=== PATIENT | male | born 1935 | race Caucasian/White ===

== ENCOUNTER 2016-10-23 08:09 | Day surgery (SDC) | payer MEDICARE, BC ==
[2016-10-23] VITALS (17 sets, daily range): BP systolic 126–161; BP diastolic 52–91; PULSE 50–98; RESP 16–25; Ht 167.6 cm; Wt 86.9 kg
[~2016-10-23] VITALS: Ht 167.6 cm; Wt 86.9 kg
[~2016-10-23 08:09] MED LIST: ASPI-664 PO; COLE1TAB5 PO; DUTA0.5C PO; FISH OIL PO; GLIM4TAB PO; LANTUS SC; LISI40TA9 PO; NIACIN PO; SITA1TAB7 PO; TAMS0.4C2 PO; TICA90TA PO
[2016-10-23] MEDS ORDERED: FINA5TAB4 PO (08:45)
[2016-10-23] MEDS ORDERED: LANT3I SC (08:46)
[2016-10-23] MEDS ORDERED: AMIT10TA6 PO (08:47)
[2016-10-23] MEDS ORDERED: SOD CHLORIDE 0.9% 1,000 ML IV SCH (09:00)
[2016-10-23] MEDS ORDERED: FENTAnyl 50 MCG/ML VIAL ONE (10:39)
[2016-10-23] MEDS ORDERED: LIDOCAINE 1% (MDV) 20 ML INJ ONE (10:39)
[2016-10-23] MEDS ORDERED: IODIXANOL LOCM 100 ML BTL ONE (10:39)
[2016-10-23] MEDS ORDERED: MIDAZOLAM 1 MG/ML 2 ML INJ ONE (10:39)
--- NOTE | 2016-10-23 11:41 | HPN ---
Date/Time of Note Date/Time of Note DATE: 10/23/16 TIME: 11:41 Interval H&P Admission Note Pt. seen H&P reviewed: No system changes RONALD CORDOBA MD Oct 23, 2016 11:41
--- NOTE | 2016-10-23 11:43 | SIPON ---
Date/Time of Note Date/Time of Note DATE: 10/23/16 TIME: 11:41 Operative Report Preoperative Diagnosis RLE rest pain, LLE disabling claudication Postoperative Diagnosis Same Operation/Procedure Performed AORTOILIAC ANGIOGRAM WITH BILATERAL LE RUNOFFS Surgeon: RONALD CORDOBA MD Estimated Blood Loss: minimal Transfusion Required: no Specimen: none Grafts/Implants: none Complications: no RONALD CORDOBA MD Oct 23, 2016 11:43
[2016-10-23] MEDS ORDERED: SOD CHLORIDE 0.45% 1,000 ML IV SCH (12:06)
--- NOTE | 2016-10-23 12:10 | PDOCDIS ---
Discharge Instructions DIAGNOSIS Discharge Diagnosis RLE rest pain, LLE disabling claudication CONDITION Patient Condition: Good HOME CARE INSTRUCTIONS: Special Diet: DIABETIC Diet ACTIVITY: Activity Restrictions: Slowly Increase Activity Avoid heavy lifting Do not Drive Do not operate Machinery Do not operate Power Tool Avoid Heavy Housework FOLLOW UP/APPOINTMENTS Follow-up Plan SURGERY ON MONDAY 10/30 RONALD CORDOBA MD Oct 23, 2016 12:10
[2016-10-23] MEDS ORDERED: ONDANSETRON 4 MG INJ IV PRN (12:30)
--- NOTE | 2016-10-23 13:19 | OPR ---
DATE OF OPERATION: 10/23/2016 SURGEON: Ambrosio Hubbard MD PREOPERATIVE DIAGNOSES: 1. Right lower extremity rest pain. 2. Left lower extremity disabling claudication. POSTOPERATIVE DIAGNOSES: 1. Right lower extremity rest pain. 2. Left lower extremity disabling claudication. OPERATIONS PERFORMED: 1. Ultrasound-guided access of the left common femoral artery 2. Aortoiliac angiogram. 3. Right lower extremity angiogram. 4. Left lower extremity angiogram. 5. Moderate sedation. ANESTHESIA: Local with sedation. ESTIMATED BLOOD LOSS: Minimal. COMPLICATIONS: None. HEPARIN: None. CONTRAST: As recorded. ACCESS: Left common femoral artery 4-Cymro sheath closure. Manual compression. SEDATION: Under physician's supervision, moderate sedation was administered intravenously under continuous monitoring by the interventional team and attending physician. Pulse oximeter, heart rates and blood pressures were continuously monitored by the interventional surgeon. Physician spent time was 45 minutes of [id number] sedation time with the patient. INDICATIONS: This is an 81-year-old gentleman who presented to us with a history of bilateral lower extremity disabling claudication, right being worse than the left, walking about 5-10 minutes where he would feel his symptoms come on. However, the patient reported that at night he does begin to wake up from the pain of his right lower extremity, specifically in his foot area. In light of these findings, the patient was discussed with obtaining of an angiogram and had been informed of alternatives, risks and benefits of angiogram, balloon angioplasty, stenting and atherectomy. The risks included, but were not limited to, bleeding, thrombosis, embolization, myocardial infarction, , stroke, device malfunction, infection, nephrotoxicity. The patient has agreed to proceed. OPERATIVE FINDINGS AT SURGERY: 1. Bilateral renal arteries are patent. Infrarenal aorta is patent and calcified. 2. Bilateral common iliac arteries, external iliac arteries, internal iliac arteries are tortuous and patent and calcified. 3. Right common femoral artery is patent. 4. Left profunda femoral artery has a proximal stenosis, otherwise patent. 5. Right superficial femoral artery with severe disease throughout and calcification with area of complete total occlusion. 6. Right above knee popliteal artery occlusion in the proximal aspect just below the adductor canal with reconstitution in its mid aspect with moderate severe disease. 7. Right at knee popliteal artery with moderate disease. 8. The right below-knee popliteal artery with moderate disease. 9. Right anterior tibial artery with moderate disease throughout. 10. Right tibioperoneal trunk is patent. 11. Right posterior tibial artery is patent with mild disease in its proximal aspect. 12. Right peroneal artery is occluded. 13. Right common plantar artery with moderate severe disease. 14. The right medial and plantar arteries are not well visualized. 15. The right dorsalis pedis artery is occluded. 16. Left common femoral artery is patent. 17. Left profunda femoral artery is patent. 18. Left superficial femoral artery with mild proximal disease, specifically in the area where there is a bi-profunda branch in the mid aspect. After that, there is severe disease across the mid to distal aspect of the superficial femoral artery. Left above knee popliteal artery with moderate severe disease. Left at knee popliteal artery with moderate disease. Left below knee popliteal artery with moderate to severe disease. 19. Left anterior tibial artery is occluded. Left tibioperoneal trunk with moderate disease. Left peroneal artery with severe disease throughout its course and area of occlusion. 20. Left posterior tibial artery with moderate to severe disease and occludes at the ankle area. 21. Left common plantar artery is not well visualized. 22. Left plantar, medial and lateral plantar arteries are not well visualized. 23. Line left dorsalis pedis artery is occluded. OPERATIVE PROCEDURE: The patient was brought into the angio suite and positioned in supine position on the fluoroscopic table. Sedation was then administered without any complications. The left groin was then shaved and prepped and draped in the usual standard sterile fashion. Time-out and appropriate site was marked and confirmed. Local anesthesia was then infiltrated in the region of the left common femoral artery. The artery was then cannulated with a micro access needle under ultrasound guidance and a guidewire was then advanced into the iliac artery under fluoroscopic guidance. The needle was then removed and a micro catheter was then placed. A DRESSBOOM wire was then passed into the infrarenal aorta under fluoroscopic guidance, followed by a short 4-Cymro sheath over the wire. The sheath was then appropriately flushed with heparinized saline solution. Omni Flush catheter was then passed into the suprarenal aorta and aortoiliac angiogram was then performed. Findings are noted above. At this point, Omni Flush catheter was then used to select the right common femoral artery in a third order selection, and a right lower extremity angiogram was then performed. At this point, it was determined not to intervene as the patient would require further contrast to perform an intervention for this severe infrainguinal disease of the right lower extremity. Therefore, the catheter was removed. At this point, we used the sheath of the left common femoral artery and performed a left lower extremity angiogram, as well. Findings are noted above. The patient tolerated procedure well and all catheters, sheaths and wires were removed. Manual compression was held in the left groin area. The patient tolerated the procedure well and was taken to the postanesthesia care unit in stable condition. PLAN: Will plan to perform a right lower extremity intervention to try to cross the complete total occlusion of the superficial femoral artery, possible angioplasty and stenting and atherectomy. Dictated By: Ambrosio Hubbard MD /[email or web address]/mani /Document#: [id number]
== END 2016-10-23 16:24 | disposition home or self-care (01) ==
LOC: SDS 08:09
PROVIDERS: ATTEND Student in an Organized Health Care Education/Training Program
DX: I73.9 Peripheral vascular disease, unspecified (principal)
CPT/HCPCS: 36200; 75630; 82962; C1887; C1894; J1644; J2250; J3010; Q9967

== ENCOUNTER 2016-10-30 09:03 | Day surgery (SDC) | payer MEDICARE, BC ==
[~2016-10-30] VITALS: Ht 167.6 cm; Wt 85.0 kg
[~2016-10-30 09:03] MED LIST changes: +AMIT10TA6 PO; -DUTA0.5C PO; +FINA5TAB4 PO; -FISH OIL PO; +LANT3I SC; -LANTUS SC; -NIACIN PO; -TICA90TA PO
[2016-10-30 09:55] VITALS: BP 125/60; PULSE 58; RESP 18
[2016-10-30 10:00] LABS: BASOPHILS % 0.2 % (0.0-2.0); EOSINOPHILS # 0.1 10^3/ul (0.0-0.5); EOSINOPHILS % 1.3 % (0.0-7.0); HEMATOCRIT 44.9 % (42.0-52.0); HEMOGLOBIN 15.5 g/dl (14.0-18.0); LYMPHOCYTES # 2.5 10^3/ul (0.8-2.9); LYMPHOCYTES % 26.7 % (15.0-51.0); MEAN CORPUSCULAR HEMOGLOBIN 30.5 pg (29.0-33.0); MEAN CORPUSCULAR HGB CONC 34.5 g/dl (32.0-37.0); MEAN CORPUSCULAR VOLUME 88.4 fl (82.0-101.0); MEAN PLATELET VOLUME 10.2 fl (7.4-10.4); MONOCYTE # 0.5 10^3/ul (0.3-0.9); MONOCYTES % 5.8 % (0.0-11.0); NEUTROPHIL # 6.1 10^3/ul (1.6-7.5); NEUTROPHILS % 65.6 % (39.0-77.0); PLATELET COUNT 160 10^3/UL (140-415); RED BLOOD COUNT 5.08 10^6/ul (4.70-6.10); RED CELL DISTRIBUTION WIDTH 12.9 % (11.5-14.5); WHITE BLOOD COUNT 9.3 10^3/ul (4.8-10.8)
--- NOTE | 2016-10-30 10:00 | HPN ---
Date/Time of Note Date/Time of Note DATE: 10/30/16 TIME: 09:59 Interval H&P Admission Note Pt. seen H&P reviewed: No system changes RONALD CORDOBA MD Oct 30, 2016 10:00
[2016-10-30 10:01] VITALS: Ht 167.6 cm; Wt 85.0 kg
[2016-10-30] MEDS ORDERED: CLOP75TA27 PO (10:04)
--- NOTE | 2016-10-30 10:04 | PDOCDIS ---
Discharge Instructions DIAGNOSIS Discharge Diagnosis BILATERAL LOWER EXTREMITY ATHEROSCLEROSIS, LLE REST PAIN, RLE DISABLING CLAUDICATION CONDITION Patient Condition: Good HOME CARE INSTRUCTIONS: Special Diet: DIABETIC ACTIVITY: Activity Restrictions: Rest between Activity Avoid heavy lifting Do not Drive Do not operate Machinery Do not operate Power Tool Avoid Heavy Housework Keep Limb Elevated Bathing Restrictions: Sponge Bath FOLLOW UP/APPOINTMENTS Follow-up Plan TWO WEEKS RONALD CORDOBA MD Oct 30, 2016 10:04
--- NOTE | 2016-10-30 10:06 | SIPON ---
Date/Time of Note Date/Time of Note DATE: 10/30/16 TIME: 10:05 Operative Report Free Text/Dictation Preoperative Diagnosis LLE REST PAIN Postoperative Diagnosis SAME Operation/Procedure Performed RLE FEMORAL ANGIOPLASTY Surgeon see signature line Anesthesia Type: moderate sedation Estimated Blood Loss: minimal Transfusion Required: no Specimen: none Grafts/Implants: none Complications: no RONALD CORDOBA MD Oct 30, 2016 10:06
[2016-10-30 10:10] LABS: INR 0.96; PROTIME 12.8 Sec (12.2-14.2)
[2016-10-30 10:11] LABS: PARTIAL THROMBOPLASTIN TIME 30.9 Sec (25.0-35.0)
[2016-10-30] MEDS ORDERED: MIDAZOLAM 1 MG/ML 2 ML INJ ONE (10:13)
[2016-10-30] MEDS ORDERED: HEPARIN 1000 UNITS/ML 10 ML INJ ONE (10:13)
[2016-10-30] MEDS ORDERED: FENTAnyl 50 MCG/ML VIAL ONE (10:13)
[2016-10-30] MEDS ORDERED: IODIXANOL LOCM 100 ML BTL ONE (10:13)
[2016-10-30 10:30] LABS: CALCIUM 10.2 mg/dl (8.4-10.2); CREATININE 0.87 mg/dl (0.61-1.24); POTASSIUM 4.9 mmol/L (3.5-5.1)
[2016-10-30 12:50] VITALS: BP 123/97; PULSE 60; RESP 20
[2016-10-30] MEDS ORDERED: SOD CHLORIDE 0.45% 1,000 ML IV SCH (13:10)
[2016-10-30] MEDS ORDERED: ONDANSETRON 4 MG INJ IV PRN (13:30)
--- NOTE | 2016-10-30 13:53 | OPR ---
DATE OF OPERATION: 10/30/2016 PREOPERATIVE DIAGNOSIS: Right lower extremity rest pain. POSTOPERATIVE DIAGNOSIS: Right lower extremity rest pain. ANESTHESIA: Local with sedation. ESTIMATED BLOOD LOSS: Minimal. COMPLICATIONS: None. HEPARIN: As recorded. CONTRAST: As recorded. ACCESS: Left common femoral artery. Seven-Jamaican sheath. CLOSURE: Manual compression and Angio-Seal closure device. SPECIMEN: None. SEDATION: Under physician's supervision, moderate sedation was administered intravenously under continuous monitoring by the interventional team and attending physician. Pulse oximeter, heart rate and blood pressures were continuously monitored by interventional surgeon. The physician's spent time was 2 hours of [id number]-etdr sedation time with the patient. INDICATIONS: This is an 81-year-old gentleman with history of right lower extremity disabling claudication that has worsened to rest pain and left lower extremity claudication in which she had undergone a lower extremity angiogram that identified severe fem-pop long segment total occlusion. The patient is here today for intervention. Risks, benefits, and alternatives were discussed with the patient including, but not limited to, bleeding, thrombosis, embolization, myocardial infarction, , stroke, device malfunction, infection, nephrotoxicity, and patient has agreed to proceed. OPERATION PERFORMED: 1. Ultrasound-guided access of the left common femoral artery. 2. A third order selection of the right common femoral artery. 3. Moderate sedation. 4. Balloon angioplasty of the right superficial femoral artery using a Lutonix 5 x 120 mm balloon. OPERATIVE PROCEDURE: The patient was brought into the angio suite, and positioned in supine position on the fluoroscopic table. Sedation was administered without any complications. The left groin was then shaved, prepped and draped in usual standard sterile fashion. Time-out and an appropriate site was marked and confirmed. Local anesthesia was infiltrated in the region of the left common femoral artery. The artery was then cannulated with a micro-access needle using ultrasound guidance and a guidewire was advanced into the iliac artery under fluoroscopic guidance. The needle was removed and a micro-catheter was placed. A devsistersson wire was passed into the infrarenal aorta under fluoroscopic guidance, followed by a short 5-Jamaican sheath over the wire. The sheath was then appropriately flushed with heparinized saline solution. Using an Omni Flush catheter, the right common femoral artery was then selected in the third order fashion. At this point, using an angled Glidewire and a NaviCross guiding catheter, we were able to cross to the proximal above-knee popliteal artery. At this point, it appeared that we were able to perform our intervention. Therefore, a 5-Jamaican sheath was removed and a destination 7-Jamaican sheath was placed. Patient was heparinized intravenously with adequate ACT. At this point, multiple attempts were made to cross the long total segment occlusion of the superficial femoral artery into the above-knee popliteal artery. However, it seemed to be unsuccessful. Multiple wires were attempted in order to re-enter from the subintimal plane. However, it seemed challenging. We ended up using a [place] re- entry catheter called [employer] in order to attempt to recanalize the true lumen in the subintimal plane and that was not successful either, as the patient has severe calcification in that segment. At this point, we decided to abort this vascular procedure and bring the patient back for a pedal access in a retrograde manner for intervention. However, the patient did have a vdgsonxk-uy-ntuzif disease in the proximal aspect of the superficial femoral artery. Therefore, we decided to perform balloon angioplasty with a drug-coated balloon with Lutonix 5 mm x 120 mm. The patient tolerated that aspect well. All sheaths, catheter, wires were removed. Angio-Seal closure device was deployed in the left common femoral artery. Patient tolerated the procedure well, was taken to the postanesthesia care unit in stable condition. All instrument, sponge, needle counts were correct x2. Dictated By: Ambrosio Hubbard MD /[email or web address]/sheila /Document#: [id number]
[2016-10-30 15:03] VITALS: BP 151/66; PULSE 57; RESP 18
[2016-10-30 16:46] VITALS: BP 148/64; RESP 18
== END 2016-10-30 16:46 | disposition home or self-care (01) ==
LOC: SDS 09:03
PROVIDERS: ATTEND Student in an Organized Health Care Education/Training Program
DX: I73.9 Peripheral vascular disease, unspecified (principal); E11.9 Type 2 diabetes mellitus without complications; I10 Essential (primary) hypertension; E78.5 Hyperlipidemia, unspecified; I25.10 Atherosclerotic heart disease of native coronary artery without angina pectoris; N40.0 Benign prostatic hyperplasia without lower urinary tract symptoms
CPT/HCPCS: 37224; 80048; 82962; 85025; 85610; 85730; C1725; C1760; C1769; C1887; C1894; J1644; J2250; J3010; Q9967

== ENCOUNTER 2016-11-20 05:42 | Day surgery (SDC) | payer MEDICARE, BC ==
[2016-11-20] VITALS (10 sets, daily range): BP systolic 90–138; BP diastolic 52–68; PULSE 48–64; RESP 14–59; Ht 167.6 cm; Wt 88.0 kg
[~2016-11-20] VITALS: Ht 167.6 cm; Wt 88.0 kg
[~2016-11-20 05:42] MED LIST changes: +CLOP75TA27 PO
[2016-11-20] MEDS ORDERED: PYRI50TA14 PO (06:29)
[2016-11-20] MEDS ORDERED: PYRI25TA13 PO (06:29)
[2016-11-20 07:07] LABS: BASOPHILS % 0.4 % (0.0-2.0); EOSINOPHILS # 0.2 10^3/ul (0.0-0.5); EOSINOPHILS % 2.5 % (0.0-7.0); HEMATOCRIT 42.5 % (42.0-52.0); HEMOGLOBIN 14.8 g/dl (14.0-18.0); LYMPHOCYTES # 3.5 10^3/ul (0.8-2.9); LYMPHOCYTES % 38.9 % (15.0-51.0); MEAN CORPUSCULAR HGB CONC 34.8 g/dl (32.0-37.0); MEAN CORPUSCULAR VOLUME 89.1 fl (82.0-101.0); MEAN PLATELET VOLUME 10.4 fl (7.4-10.4); MONOCYTE # 0.6 10^3/ul (0.3-0.9); MONOCYTES % 7.1 % (0.0-11.0); NEUTROPHIL # 4.6 10^3/ul (1.6-7.5); NEUTROPHILS % 50.9 % (39.0-77.0); PLATELET COUNT 164 10^3/UL (140-415); RED BLOOD COUNT 4.77 10^6/ul (4.70-6.10); RED CELL DISTRIBUTION WIDTH 12.9 % (11.5-14.5)
[2016-11-20 07:12] LABS: INR 0.95; PROTIME 12.7 Sec (12.2-14.2)
[2016-11-20] MEDS ORDERED: SOD CHLORIDE 0.9% 500 ML ONE ×3 (07:14→10:56)
[2016-11-20] MEDS ORDERED: LIDOCAINE 1% (MDV) 20 ML INJ ONE (07:14)
[2016-11-20] MEDS ORDERED: HEPARIN 1000 UNITS/ML 10 ML INJ ONE ×2 (07:15→10:55)
[2016-11-20] MEDS ORDERED: FENTAnyl 50 MCG/ML VIAL ONE (07:19)
[2016-11-20 07:20] LABS: ALBUMIN 3.9 g/dl (3.3-4.9); ALBUMIN/GLOBULIN RATIO 1.02; BILIRUBIN,INDIRECT 0.4 mg/dl (0-1.1); BILIRUBIN,TOTAL 0.4 mg/dl (0.2-1.3); TOTAL PROTEIN 7.7 g/dl (6.1-8.1)
[2016-11-20] MEDS ORDERED: MIDAZOLAM 1 MG/ML 2 ML INJ ONE ×2 (07:20→09:49)
[2016-11-20] MEDS ORDERED: IODIXANOL LOCM 100 ML BTL ONE (07:20)
[2016-11-20 07:22] LABS: CALCIUM 9.7 mg/dl (8.4-10.2); CREATININE 1.07 mg/dl (0.61-1.24); POTASSIUM 4.4 mmol/L (3.5-5.1)
[2016-11-20] MEDS ORDERED: NITROGLYCERIN (IC) 100 MCG/ML INJ ONE ×3 (07:37→11:03)
[2016-11-20] MEDS ORDERED: VERAPAMIL 5 MG INJ ONE ×4 (07:37→09:39)
[2016-11-20] MEDS ORDERED: IODIXANOL LOCM 50 ML BTL ONE (11:06)
--- NOTE | 2016-11-20 11:51 | PDOCDIS ---
Discharge Instructions DIAGNOSIS Discharge Diagnosis RLE rest pain CONDITION Patient Condition: Good HOME CARE INSTRUCTIONS: Special Diet: resume preop diet ACTIVITY: Activity Restrictions: Slowly Increase Activity Rest between Activity Avoid heavy lifting Do not Drive Do not operate Machinery Do not operate Power Tool Avoid Heavy Housework Activity Restrictions Comment: MAY SHOWER IN 48HRS FOLLOW UP/APPOINTMENTS Follow-up Plan FOLLOWUP IN 2-3 WEEKS REMOVE DRESSING TOMORROW MAY SHOWER IN 48HRS tAKE [id number] AND PLAVIX 75MG PO DAILY RONALD CORDOBA MD Nov 20, 2016 11:51
[2016-11-20] MEDS ORDERED: CLOPIDOGREL 75 MG TAB ONE ×2 (11:52→12:11)
[2016-11-20] MEDS ORDERED: SOD CHLORIDE 0.45% 1,000 ML IV SCH (11:52)
--- NOTE | 2016-11-20 11:54 | HPN ---
Date/Time of Note Date/Time of Note DATE: 11/20/16 TIME: 11:54 Interval H&P Admission Note Pt. seen H&P reviewed: No system changes RONALD CORDOBA MD Nov 20, 2016 11:54
--- NOTE | 2016-11-20 11:57 | SIPON ---
Date/Time of Note Date/Time of Note DATE: 11/20/16 TIME: 11:55 Operative Report Preoperative Diagnosis RLE REST PAIN Postoperative Diagnosis SAME Operation/Procedure Performed RLE ANGIOGRAM RIGHT PEDAL ACCESS RIGHT FEMPOP ATHERECTOMY RIGHT FEMPOP ANGIOPLASTY AND STENTING RIGHT POP THROMBECTOMY RIGHT BKPOP ANGIOPLASTY RIGHT AT ANGIOPLASTY Surgeon see signature line assistant office manager NONE Anesthesia: moderate sedation Estimated blood loss: minimal Transfusion Required none Specimen INNOVA STENT Grafts/Implants none Complications none RONALD CORDOBA MD Nov 20, 2016 11:57
[2016-11-20] MEDS ORDERED: ONDANSETRON 4 MG INJ IV PRN (12:00)
--- NOTE | 2016-11-24 05:42 | OPR ---
Date/Time of Note Date/Time of Note DATE: 11/24/16 TIME: 07:41 Operative Report Surgeon see signature line Anesthesia Type: moderate sedation Estimated Blood Loss: minimal Transfusion none Grafts/Implants none Complications none Pt Condition Post Procedure: stable Disposition: PACU Procedure Description DATE OF OPERATION: 11/20/2016 SURGEON: Ambrosio Cordoba MD PREOPERATIVE DIAGNOSIS: Right lower extremity rest pain POSTOPERATIVE DIAGNOSIS: Same ANESTHESIA: Local with Sedation BLOOD LOSS: minimal COMPLICATIONS: None. HEPARIN: 7500 units CONTRAST: 60ml ACCESS: 5Fr Sheath Antegrade right STOCKROOM SELECTOR CLOSURE: Manual compression, TR Band and Angio-Seal Closure Device INDICATIONS: This is a 64-year-old female whom had presented with severe right lower extremity tissue loss and diminished bilateral popliteal and pedal pulses. Upon her diagnostic angiogram was identified that patient has severe tibial disease that were essentially occluded proximally Patient has been informed of the alternatives, risks, and benefits of angiogram, balloon angioplasty, stenting, and atherectomy. Risks including but not limited to bleeding, thrombosis, embolization, myocardial infarction, , device malfunction, infection, and nephrotoxicity and patient has agreed to proceed. PROCEDURE: 1. Ultrasound guided antegrade access of right common femoral artery 2. Ultrasound-guided pedal artery access 3. Balloon Angioplasty of superficial femoral artery with 5.0x80mm 4. Balloon angioplasty of popliteal artery with 5.0x80mm 5. Balloon angioplasty of tibioperoneal trunk with [id number] & [id number] 6. Balloon angioplasty of posterior tibial artery with [id number] & [id number] 7. Balloon angioplasty of common plantar artery 2.5 X 120mm POST INTERVENTION: Right femoropopliteal with no flow limiting stenosis Right Tibioperoneal trunk patent Right Posterior tibial artery in-line flow to common plantar artery DESCRIPTION OF THE PROCEDURE: The patient was brought to the angio suite and positioned in the supine position on the fluoroscopic table. Sedation was administered without complication. Bilateral groins were shaved, prepped and draped in the standard sterile fashion. A time-out and the appropriate site was marked and confirmed. Patient was sedated by anesthesia and then Local anesthesia was infiltrated in the region of the right common femoral artery in antegrade fashion and right pedal artery. The pedal artery was cannulated with a micro access needle under ultrasound guidance and a guide wire advanced to the proximal posterior tibial artery. The needle was removed and a 4/5 Samoan sheath was placed. Sheath was flushed with heparinized saline solution and cocktail given. Wire was then passed into the distal SFA under fluoroscopic guidance. This was a bit challenging as the posterior tibial artery and tibioperoneal truck was total long segment occlusion. The right STOCKROOM SELECTOR was cannulated with a micro access needle under ultrasound guidance in an antegrade fashion. The needle was removed and a microcatheter was placed. [place]ose[place] wire was then passed into the SFA under fluoroscopic guidance followed by a short 5Fr sheath over the wire. Sheath was appropriately flushed with heparinized saline solution. Intravenous heparin was given. At this point a glidewire wire was placed through the sheath followed by glide catheter and placed the wire in the AKP. Using pedal access sheath the long segment occlusion of the PT and TPT, a balloon angioplasty of the PT and TPT artery was performed. Then balloon angioplasty of the SFA/pop was performed with out any issues. Angiogram demonstrated some residual flow limiting stenosis in the PT and thus repeated balloon angioplasty. Pedal access removed and TR band placed with out difficulty. Completion angio demonstrated distal occlusion of the PT still present. At this point a spartacore wire was passed from antegrade sheath into the common plantar artery and balloon angioplasty was performed. There was satisfactory in-line flow to the plantar arteries with some residual stenosis in the PT. At this point the sheath was removed and Angio -Seal closure device was deployed in the left groin. Pressure was held and the patient was taken to the recovery unit in fair condition. PLAN: Essentially patient has in-line flow from the common femoral artery to the common plantar artery. Hopefully this will serve with increasing AMBROSIO CORDOBA MD Nov 24, 2016 05:42
== END 2016-11-20 17:54 | disposition home or self-care (01) ==
LOC: SDS 05:42 → CCL 05:45 → SDS 17:54
PROVIDERS: ATTEND Student in an Organized Health Care Education/Training Program
DX: I70.221 Atherosclerosis of native arteries of extremities with rest pain, right leg (principal); I70.212 Atherosclerosis of native arteries of extremities with intermittent claudication, left leg; I77.1 Stricture of artery
CPT/HCPCS: 37224; 37228; 37232; 80053; 85025; 85610; 85730; C1714; C1725; C1760; C1769; C1875; C1894; J1644; J2250; J3010; J7040; Q9967

== ENCOUNTER 2016-11-25 10:07 | Inpatient (IN) | payer MEDICARE, BC ==
[~2016-11-25] VITALS: Ht 167.6 cm; Wt 78.0 kg
[~2016-11-25 10:07] MED LIST changes: +PYRI25TA13 PO; +PYRI50TA14 PO
--- NOTE | 2016-11-25 10:36 | ERA ---
ER Documentation Chief Complaint Date/Time DATE: 11/25/16 TIME: 10:34 Chief Complaint sob , generalized weakness x 2 days ,had stent placement on rt leg on 11/20 HPI 81-year-old male with a history of CAD status post CABG, dilated cardiomyopathy , diabetes, hypertension, PAD with right lower extremity claudication status post right femoral angioplasty 11/20/2016 presenting with shortness of breath. ROS All systems reviewed and are negative except as per history of present illness. Medications Home Meds Active Scripts Clopidogrel Bisulfate (Clopidogrel) 75 Mg Tablet, 75 MG PO DAILY, #30 TAB Prov:MABROSIO CORDOBA MD 10/30/16 Reported Medications Pyridoxine Hcl* (Vitamin B-6*) 25 Mg Tablet, 25 MG PO DAILY, TAB 11/20/16 Pyridoxine Hcl* (Pyridoxine Hcl*) 50 Mg Tablet, 50 MG PO DAILY, TAB 11/20/16 Amitriptyline Hcl* (Amitriptyline Hcl*) 10 Mg Tablet, 10 MG PO QHS, #30 TAB 10/23/16 Insulin Glargine* (Lantus*) 100 Unit/Ml Soln, 10 UNIT SC DAILY, #1 VIAL 10/23/16 Finasteride* (Finasteride*) 5 Mg Tablet, 5 MG PO DAILY, TAB 10/23/16 Lisinopril* (Lisinopril*) 40 Mg Tablet, 40 MG PO DAILY, TAB 02/22/14 Glimepiride* (Glimepiride*) 4 Mg Tablet, 4 MG PO WITH BREAKFAST, TAB 02/22/14 Tamsulosin Hcl* (Tamsulosin Hcl*) 0.4 Mg Cap.er.24h, 0.4 MG PO DAILY, CAP 02/22/14 Colestipol Hcl (Colestipol Hcl) 1 G Tablet, 1 G PO BID 02/22/14 Sitagliptin Phos-Metformin Hcl (Janumet) 50-1,000 Mg Tablet, 1 TAB PO BID, TAB 02/22/14 Aspirin* (Aspirin* EC) 81 Mg Tablet.dr, 81 MG PO DAILY, TAB 02/22/14 Allergies Allergies: Coded Allergies: No Known Allergy (Unverified , 10/30/16) PMhx/Soc History of Surgery: Yes ([id number], BILAT HIP REPLACEMENTS) Anesthesia Reaction: No Hx Neurological Disorder: No Hx Respiratory Disorders: No Hx Cardiac Disorders: Yes (CAD, hypertension) Hx Psychiatric Problems: No Hx Miscellaneous Medical Probl: Yes (Diabetes, hyperlipidemia, peripheral arterial disease) Hx Alcohol Use: No Hx Substance Use: No Hx Tobacco Use: No FmHx Family History: No diabetes Physical Exam Vitals Vital Signs Date Time Temp Pulse Resp B/P Pulse Ox O2 Delivery O2 Flow Rate FiO2 11/25/16 14:19 91 18 136/92 11/25/16 12:17 58 18 128/68 11/25/16 11:10 Nasal Cannula 11/25/16 11:10 61 18 123/67 98 Room Air 11/25/16 10:11 98.2 70 20 120/57 99 Physical Exam Const: Nontoxic, speaking in short sentences secondary to shortness of breath Head: Atraumatic Eyes: Normal Conjunctiva ENT: Normal External Ears, Nose and Mouth. Neck: Full range of motion..~ No meningismus. No JVD Resp: Clear to auscultation bilaterally Cardio: Regular rate and rhythm, no murmurs Abd: Soft, non tender, non distended. Normal bowel sounds Skin: No petechiae or rashes Back: No midline or flank tenderness Ext: No cyanosis, or edema. 3-4 cm blisters noted in the anterior and posterior right ankle with clear yellow fluid under the skin with erythematous base, however there is no evidence of cellulitis and no purulent drainage. Left DP and PT pulses nonpalpable. This is baseline per patient. Right PT pulse palpable, 2+. Unable to palpate DP pulse. Foot warm. Cap refill about 3 seconds Neur: Awake and alert Psych: Normal Mood and Affect Result Diagram: 11/25/16 1115 11/25/16 1115 Results 24 hrs Laboratory Tests Test 11/25/16 11:15 White Blood Count 10.710^3/ul Red Blood Count 4.7410^6/ul Hemoglobin 14.0g/dl Hematocrit 42.2% Mean Corpuscular Volume 89.0fl Mean Corpuscular Hemoglobin 29.5pg Mean Corpuscular Hemoglobin Concent 33.2g/dl Red Cell Distribution Width 13.1% Platelet Count 22629^3/UL Mean Platelet Volume 10.5fl Neutrophils % 81.1% Lymphocytes % 11.3% Monocytes % 6.2% Eosinophils % 1.0% Basophils % 0.1% Nucleated Red Blood Cells % 0.0/100WBC Neutrophils # 8.710^3/ul Lymphocytes # 1.210^3/ul Monocytes # 0.710^3/ul Eosinophils # 0.110^3/ul Basophils # 0.010^3/ul Nucleated Red Blood Cells # 0.010^3/ul Prothrombin Time 12.8Sec Prothrombin Time Ratio 1.0 INR International Normalized Ratio 0.96 Activated Partial Thromboplast Time 30.6Sec Sodium Level 137mmol/L Potassium Level 5.2mmol/L Chloride Level 103mmol/L Carbon Dioxide Level 22mmol/L Anion Gap 17 Blood Urea Nitrogen 26mg/dl Creatinine 1.26mg/dl Glucose Level 280mg/dl Calcium Level 9.6mg/dl Troponin I < 0.012ng/ml Current Medications Medications (Trade) Dose Ordered Sig/Liang Route PRN Reason Start Time Stop Time Status Last Admin Dose Admin Sodium Chloride 500 ml @ 500 mls/hr Q1H STAT IV 11/25/16 12:37 11/25/16 13:36 DC 11/25/16 12:47 Iohexol 100 ml @ ud STK-MED ONCE .ROUTE 11/25/16 13:01 11/25/16 13:02 DC Sodium Chloride (NS) 100 ml @ STK-MED ONCE .ROUTE 11/25/16 13:01 11/25/16 13:02 DC Sodium Polystyrene Sulfonate (Kayexalate) 30 gm ONCE ONCE PO 11/25/16 14:00 11/25/16 14:01 DC Procedures/MDM EKG: Rate/Rhythm: Normal Sinus Rhythm QRS, ST, T-waves: Normal intervals, nonspecific T-wave inversions in the fermin-lateral and inferior leads Impression: No evidence of arrhythmia or STEMI Chest x-ray: IMPRESSION: 1. Mild bibasilar atelectasis without acute infiltrate. 2. Sternotomy wires. 3. Atherosclerosis. RPTAT: QQ .Andrade Dale MD, MD Date Time Electronically viewed and signed by .Andrade Dale MD, MD on 11/25/2016 12:19 CTPA: IMPRESSION: No visualized pulmonary embolus. Calcified granulomatous disease in the mediastinum, right hilum in both lungs. Small nodules in both lungs, measuring up to 6 mm. Continued follow-up to assess stability is recommended. Degenerative changes in the spine and calcified atherosclerosis in the arterial vasculature. Guidelines for Management of Small Pulmonary Nodules Detected on CT Scans: A statement from the Fleischner Society Single Solid Nodule: <6mm(<100mm3): Low risk: No f/u. High risk: Optional CT at 12 months. Certain pts at high risk with suspicious nodule morphology, upper lobe location, or both may warrant 12 mo f/u. 6-8mm(100-250mm3): Low risk: CT at 6-[address] at 18-24 mos. High risk: CT at 6-[address] at 18-24 mos. >8mm(>250mm3): Consider CT, PET/CT, or tissue sampling at 3 mos. Multiple Solid Nodules: Use most susp nod to guide mgmt. F/u intervals may vary according to size/risk <6mm(<100mm3): Low risk: No f/u. High risk: Optional CT at 12 months. 6-8mm(100-250mm3): Low risk: CT at 3-[address] at 18-24 mos. High risk: CT at 3-[address] at 18-24 mos. >8mm(>250mm3): Low risk: CT at 3-[address] at 18-24 mos. High risk: CT at 3-[address] at 18-24 mos. Single Subsolid Nodule: Ground Glass: In certain susp nods <6mm, consider 2 and 4 yr f/u. If solid component increases or growth develops, consider resection. Otherwise: <6mm(<100mm3): Low risk: No f/u. High risk: CT at 6-12 mos to confirm persistence, then CT every 2 yrs until 5 yrs. Part Solid: Must be >or=6mm to be part solid. CT at 3-6 mos to confirm persistence. If unchanged and solid component still <6mm, do annual CT for 5 yrs. If solid component >=6mm, consider highly suspicious. Multiple Subsolid Nodules: <6mm(<100mm3): CT at 3-6 mos. If stable, consider CT at 2 and 4 yrs. Mult <6mm pure ground glass nods usually benign but consider f/u in selected high risk pts at 2 and 4 yrs. >=6mm(>100mm3): CT at 3-6 mos. Subseq management based on most susp nodule. Reference: Radiology 2017 Special Report RPTAT: AA .Toby Eugene MD, MD Date Time Electronically viewed and signed by .Toby Eugene MD, MD on 11/25/2016 13:37 Labs: CBC: no anemia or evidence of infection CMP: No evidence of electrolyte abnormality, renal failure, hypoglycemia, liver failure, or biliary obstruction Lipase: no evidence of pancreatitis Troponin within normal limits Lactate within normal limits UA: no evidence of infection MDM Patient is presenting with dyspnea of unknown etiology. Vitals are stable and he is satting normally on room air. Given his recent history of surgeries, patient is higher risk for pulmonary embolism. Labs were notable for mild elevation of creatinine and BUN, however I believe the risks of undiagnosed PE outweighs the risks of contrast at this time. X-ray did not show evidence of pneumonia, fluid overload, pneumothorax, or other acute abnormalities. For this reason, CTPA was done to evaluate for possibility of pulmonary embolism and did not show evidence of this. Acute coronary syndrome remains on the differential but is less likely. Initial troponin is within normal limits. Small bolus of IV fluids was given and a dose of Kayexalate was given orally. I spoke with Dr. Valente, the patient's vascular surgeon, who will come see the patient. At this time there is no evidence of critical limb ischemia. He states the blisters are expected after the band that was wrapped around his ankle after surgery. Patient will require admission for further workup and monitoring. He is not back to his normal self and the etiology of his symptoms is unknown at this time. He is high risk for decompensation at home. Family is agreeable with the plan. Accepting Care Team: Current data and ongoing care discussed. Time: Time of admission Primary Provider: Sharan, hardwood floor installation helper for Consulting: Dr. Ambrosio Cordoba Outstanding Data: none Departure Diagnosis: Primary Impression: Dyspnea Qualified Code: R06.00 - Dyspnea, unspecified type Additional Impression: Acute renal failure Qualified Code: N17.9 - Acute renal failure, unspecified acute renal failure type Condition: Serious LENA MARTINEZ MD Nov 25, 2016 10:36
[2016-11-25 11:32] LABS: BASOPHILS % 0.1 % (0.0-2.0); EOSINOPHILS # 0.1 10^3/ul (0.0-0.5); HEMATOCRIT 42.2 % (42.0-52.0); LYMPHOCYTES # 1.2 10^3/ul (0.8-2.9); LYMPHOCYTES % 11.3 % (15.0-51.0); MEAN CORPUSCULAR HEMOGLOBIN 29.5 pg (29.0-33.0); MEAN CORPUSCULAR HGB CONC 33.2 g/dl (32.0-37.0); MEAN PLATELET VOLUME 10.5 fl (7.4-10.4); MONOCYTE # 0.7 10^3/ul (0.3-0.9); MONOCYTES % 6.2 % (0.0-11.0); NEUTROPHIL # 8.7 10^3/ul (1.6-7.5); NEUTROPHILS % 81.1 % (39.0-77.0); PLATELET COUNT 154 10^3/UL (140-415); RED BLOOD COUNT 4.74 10^6/ul (4.70-6.10); RED CELL DISTRIBUTION WIDTH 13.1 % (11.5-14.5); WHITE BLOOD COUNT 10.7 10^3/ul (4.8-10.8)
[2016-11-25 11:50] LABS: ANION GAP 17 (8-16); BLOOD UREA NITROGEN 26 mg/dl (7-20); CALCIUM 9.6 mg/dl (8.4-10.2); CARBON DIOXIDE 22 mmol/L (21-31); CHLORIDE 103 mmol/L (97-110); CREATININE 1.26 mg/dl (0.61-1.24); GLUCOSE 280 mg/dl (70-220); POTASSIUM 5.2 mmol/L (3.5-5.1); SODIUM 137 mmol/L (135-144)
[2016-11-25 11:52] LABS: INR 0.96; PROTIME 12.8 Sec (12.2-14.2)
[2016-11-25 11:54] LABS: PARTIAL THROMBOPLASTIN TIME 30.6 Sec (25.0-35.0)
[2016-11-25 12:02] LABS: TROPONIN-I < 0.012 ng/ml (0.00-0.12)
--- NOTE | 2016-11-25 12:19 | RADRPT ---
PROCEDURE: XR Chest. CLINICAL INDICATION: Shortness of breath TECHNIQUE: Single frontal chest x-ray. COMPARISON: None. FINDINGS: Sternotomy wires are present. There is no focal consolidation, pleural effusion or pneumothorax. Mi ld bibasilar atelectasis. The aortic arch is calcified. The cardiac silhouette is magnified. Mild bi lateral AC joint arthrosis. IMPRESSION: 1. Mild bibasilar atelectasis without acute infiltrate. 2. Sternotomy wires. 3. Atherosclerosis. RPTAT: QQ .Andrade Dale MD, MD Date Time Electronically viewed and signed by .Andrade Dale MD, MD on 11/25/2016 12:19 .d/
[2016-11-25] MEDS ORDERED: SOD CHLORIDE 0.9% 500 ML IV STA (12:37)
[2016-11-25] MEDS ORDERED: SOD CHLORIDE 0.9% 100 ML ONE (13:01)
[2016-11-25] MEDS ORDERED: IOHEXOL 100 ML ONE (13:01)
--- NOTE | 2016-11-25 13:37 | RADRPT ---
PROCEDURE: CTA Chest with IV contrast. CLINICAL INDICATION: Chest pain and shortness of breath. TECHNIQUE: The study was performed utilizing a multidetector CT scanner. Direct spiral axial secti ons were obtained from the thoracic inlet through the upper abdomen before and after the injection o f 100 cc Omnipaque 350 intravenous contrast material and reformatted at 1.25 mm. 3D, coronal and sag ittal reformations were obtained. The images were reviewed on a PACS workstation. DLP = 667.5 mGy-c m.CTDiVol = 56.3, 17.7 mGy. One or more of the following post reduction techniques were used: - Automated exposure control. - Adjustment of the mA and/or Kv according to patient's size. - Use of iterative reconstruction technique COMPARISON: No prior studies are available for comparison. FINDINGS: No pulmonary arterial filling defects to indicate pulmonary embolus are identified. Heart size is within normal limits. Coronary artery calcifications are observed. Surgical clips are seen overlying the heart. A few scattered calcified granulomas are identified in the paratracheal an d subcarinal regions. A few additional calcified granulomas are seen in the right hilum. No hilar or mediastinal lymphadenopathy is observed. The visualized portions of the inferior thyroid appear un remarkable. Scattered mild calcified atherosclerosis is noted in the thoracic aorta. Small hiatal he rnia is observed. The thoracic esophagus is unremarkable. The posterior lower lungs were not completely included on the obtained images. Partially calcified s oft tissue nodule measuring up to 6 mm is identified in the right upper lobe (series 4, image 64). S mall scattered subpleural nodules measuring up to 3 mm are seen in the anterior right upper lobe (se natanael 4, image 71). An additional 4 mm nodule is identified in the right upper lobe, along the right minor fissure (series 4, image 69). Calcified granuloma is noted in the superior segment of the righ t lower lobe, along the right major fissure. Multiple partially calcified subpleural nodules measuring up to approximately 6 mm are identified in the anterior left upper lobe (series 4, image 54). Calcified granuloma is identified in the anterio r left lower lobe, along the major fissure. Dependent, subsegmental atelectasis is noted in both mallory gs. Small bleb is seen in the posterior right lower lobe. The visualized organs of the superior abdomen are unremarkable. Median sternotomy wires are identified in the sternum. Moderate degenerative changes are noted in th e spine. The subcutaneous and muscular soft tissues surrounding the chest are unremarkable. IMPRESSION: No visualized pulmonary embolus. Calcified granulomatous disease in the mediastinum, right hilum in both lungs. Small nodules in both lungs, measuring up to 6 mm. Continued follow-up to assess stability is recomm ended. Degenerative changes in the spine and calcified atherosclerosis in the arterial vasculature. Guidelines for Management of Small Pulmonary Nodules Detected on CT Scans: A statement from the Flei schner Society Single Solid Nodule: <6mm(<100mm3): Low risk: No f/u. High risk: Optional CT at 12 months. Certain pts at high risk with suspicious nodule morphology, upper lobe location, or both may warrant 12 mo f/ u. 6-8mm(100-250mm3): Low risk: CT at 6-[address] at 18-24 mos. High risk: CT at 6-[address] at 18-24 mos. >8mm(>250mm3): Consider CT, PET/CT, or tissue sampling at 3 mos. Multiple Solid Nodules: Use most susp nod to guide mgmt. F/u intervals may vary according to size/r isk <6mm(<100mm3): Low risk: No f/u. High risk: Optional CT at 12 months. 6-8mm(100-250mm3): Low risk: CT at 3-[address] at 18-24 mos. High risk: CT at 3-[address] at 18-24 mos. >8mm(>250mm3): Low risk: CT at 3-[address] at 18-24 mos. High risk: CT at 3-[address] at 18-24 mos. Single Subsolid Nodule: Ground Glass: In certain susp nods <6mm, consider 2 and 4 yr f/u. If solid component increases or growth develops, consider resection. Otherwise: <6mm(<100mm3): Low risk: No f/u. High risk: CT at 6-12 mos to confirm persistence, then CT every 2 yrs until 5 yrs. Part Solid: Must be >or=6mm to be part solid. CT at 3-6 mos to confirm persistence. If unchang ed and solid component still <6mm, do annual CT for 5 yrs. If solid component >=6mm, consider highly suspicious. Multiple Subsolid Nodules: <6mm(<100mm3): CT at 3-6 mos. If stable, consider CT at 2 and 4 yrs. Mult <6mm pure ground gla ss nods usually benign but consider f/u in selected high risk pts at 2 and 4 yrs. >=6mm(>100mm3): CT at 3-6 mos. Subseq management based on most susp nodule. Reference: Radiology 2017 Special Report RPTAT: AA .Toby Eugene MD, Date Time Electronically viewed and signed by .Toby Eugene MD, on 11/25/2016 13:37 .P/
[2016-11-25] MEDS ORDERED: NA POLYST SULFON 15 GM/60 ML BTL PO ONE (14:00)
[2016-11-25] MEDS ORDERED: ACETAMINOPHEN 325 MG TAB PO PRN (15:00)
[2016-11-25] MEDS ORDERED: ONDANSETRON 4 MG INJ IV PRN (15:00)
[2016-11-25] MEDS ORDERED: ZOLPIDEM 5 MG TAB PO PRN (16:00)
[2016-11-25] MEDS ORDERED: NACL 0.9% 3 ML SYG IV SCH (16:00)
[2016-11-25] MEDS ORDERED: MAGNESIUM HYDROXIDE 30ML CUP PO PRN (16:00)
[2016-11-25] MEDS ORDERED: ALBUTEROL/IPRATROPIUM (NEB) 3 ML AMP NEB PRN (16:00)
[2016-11-25] MEDS ORDERED: DEXTROSE 50% 50 ML SYRINGE IV PRN ×2 (17:00)
[2016-11-25] MEDS ORDERED: GLUCAGON 1 MG INJ IM PRN (17:00)
[2016-11-25] MEDS ORDERED: GLUCOSE GEL 15 GRAM TUBE BUCCAL PRN (17:00)
[2016-11-25] MEDS ORDERED: GLUCOSE GEL 15 GRAM TUBE PO PRN ×2 (17:00)
[2016-11-25 17:30] VITALS: BP 139/65; RESP 16
[2016-11-25] MEDS: COLESTIPOL HCL 1 GM XX SCH (17:39)
[2016-11-25] MEDS: [UNRECOGNIZED DRUG - OTHER] XX SCH (17:39)
[2016-11-25 18:28] VITALS: Ht 167.6 cm; Wt 78.0 kg
[2016-11-25 19:14] LABS: T3 UPTAKE 42.6 % (23.5-40.5)
[2016-11-25 19:29] VITALS: BP 139/63; RESP 18
[2016-11-25 20:19] VITALS: PULSE 57
[2016-11-25] MEDS ORDERED: AMITRIPTYLINE 10 MG TAB PO SCH (21:00)
[2016-11-25 23:53] VITALS: BP 120/80; RESP 16
[2016-11-26] VITALS (12 sets, daily range): BP systolic 124–154; BP diastolic 59–70; PULSE 59–69; RESP 16–18
[2016-11-26] MEDS: COLESTIPOL HCL 1 GM XX SCH ×3 (01:00→17:00)
[2016-11-26] MEDS: [UNRECOGNIZED DRUG - OTHER] XX SCH ×3 (01:00→17:00)
[2016-11-26] MEDS: PANTOPRAZOLE (EC) 40 MG TAB PO SCH (06:16)
[2016-11-26 06:23] LABS: BASOPHILS % 0.3 % (0.0-2.0); EOSINOPHILS # 0.2 10^3/ul (0.0-0.5); EOSINOPHILS % 3.1 % (0.0-7.0); HEMATOCRIT 37.2 % (42.0-52.0); HEMOGLOBIN 12.6 g/dl (14.0-18.0); LYMPHOCYTES # 2.5 10^3/ul (0.8-2.9); LYMPHOCYTES % 36.2 % (15.0-51.0); MEAN CORPUSCULAR HEMOGLOBIN 30.4 pg (29.0-33.0); MEAN CORPUSCULAR HGB CONC 33.9 g/dl (32.0-37.0); MEAN CORPUSCULAR VOLUME 89.6 fl (82.0-101.0); MEAN PLATELET VOLUME 10.3 fl (7.4-10.4); MONOCYTE # 0.6 10^3/ul (0.3-0.9); MONOCYTES % 8.8 % (0.0-11.0); NEUTROPHIL # 3.5 10^3/ul (1.6-7.5); NEUTROPHILS % 51.3 % (39.0-77.0); PLATELET COUNT 145 10^3/UL (140-415); RED BLOOD COUNT 4.15 10^6/ul (4.70-6.10); RED CELL DISTRIBUTION WIDTH 12.9 % (11.5-14.5); WHITE BLOOD COUNT 6.9 10^3/ul (4.8-10.8)
[2016-11-26 07:33] LABS: ALBUMIN 3.1 g/dl (3.3-4.9); ALBUMIN/GLOBULIN RATIO 0.88; BILIRUBIN,INDIRECT 0.3 mg/dl (0-1.1); BILIRUBIN,TOTAL 0.3 mg/dl (0.2-1.3); CALCIUM 8.9 mg/dl (8.4-10.2); CREATININE 1.05 mg/dl (0.61-1.24); TOTAL PROTEIN 6.6 g/dl (6.1-8.1)
--- NOTE | 2016-11-26 07:52 | HP ---
DATE OF ADMISSION: 11/25/2016 VASCULAR SURGERY CONSULTATION Dear Doctors: Mr. Parham is an 81-year-old gentleman known to our vascular surgery service secondary to history of bilateral lower extremity atherosclerosis with right lower extremity rest pain and left lower extrem ity disabling claudication who recently underwent right lower extremity endovascular intervention. Patient has been doing well from the standpoint of his lower extremity rest pain in which it has res olved since his procedure about a week ago. The patient had presented to the Emergency Department w ith presentation of shortness of breath and being currently evaluated for that. Vascular surgery co nsultation was obtained for evaluation of his lower extremity. The patient denies chest pain, nause a, vomiting, fever or chills. The patient denies right lower extremity rest pain. Patient still damon s disabling claudication of the left lower extremity. REVIEW OF SYSTEMS: A 14-point review performed and negative except what is mentioned in the HPI. PAST MEDICAL HISTORY: Entails dilated cardiomyopathy, coronary artery disease, hypertension, diabet es, bilateral lower extremity atherosclerosis with right lower extremity rest pain, left lower extre mity disabling claudication, hyperlipidemia. PAST SURGICAL HISTORY: CABG, bilateral hip replacements. FAMILY HISTORY: Hypertension. SOCIAL HISTORY: Denies tobacco, alcohol or illicit drug use. Previous smoker. PHYSICAL EXAMINATION: GENERAL: Alert and oriented x3, no apparent distress. HEENT: Normocephalic, atraumatic. PERRLA, EOMI. Mucosa moist. NECK: Supple. No carotid bruit. PULMONARY: Coarse breath sounds bilateral, no crackles. CARDIOVASCULAR: S1, S2 present. No murmurs. ABDOMEN: Soft, nontender, nondistended. Bowel sounds positive. EXTREMITIES: Right lower extremity palpable femoral pulse. Dopplerable posterior tibial signal. M otor and sensory intact. Capillary refill 3 seconds. Light blister on the anterior aspect of the l ower leg near his previous pedal access, which is superficial and dry. Left lower extremity palpabl e femoral pulse, nonpalpable pedal pulse. Motor and sensory intact. Capillary refill 4 seconds. ASSESSMENT AND PLAN: Bilateral lower extremity atherosclerosis with right lower extremity rest pain and left lower extremity disabling claudication. The patient had presented with shortness of breat h and is currently being worked up from a medical standpoint. From a vascular surgery standpoint, t he patient needs no further intervention for now. We will plan for the patient to optimize during t his hospitalization and then we will plan to bring the patient back for his left lower extremity as an outpatient. In regards to the patient's blister of the right lower extremity above his ankle, no thing of concern as it is superficial and no significant findings. Optimize vascular status (BP, medications, diet, nutrition, exercise, sugar control, antiplatelets). Discussed findings, plan and management with the patient and daughter at the bedside and they unders tand. Thank you for allowing us to partake in the care of your patient. Please call with any questions. Dictated By: RONALD STACK/LEVAR Conf#: [id number] DID#: [id number]
[2016-11-26] MEDS ORDERED: GLIMEPIRIDE 4 MG TAB PO SCH (07:55)
[2016-11-26] MEDS: INSULIN GLARGINE [LANtus] 3 ML PEN SC SCH (09:00)
[2016-11-26] MEDS ORDERED: TAMSULOSIN (SR) 0.4 MG CAP PO SCH (09:00)
[2016-11-26] MEDS: CLOPIDOGREL 75 MG TAB PO SCH (09:05)
[2016-11-26] MEDS: LINAGLIPTIN 5 MG TABLET PO SCH (09:05)
[2016-11-26] MEDS: LISINOPRIL 20 MG TAB PO SCH (09:05)
[2016-11-26] MEDS: ASPIRIN (EC) 81 MG TAB PO SCH (09:05)
[2016-11-26] MEDS: PYRIDOXINE 50 MG TAB PO SCH (09:06)
[2016-11-26] MEDS: FINASTERIDE 5 MG TAB PO SCH (09:06)
--- NOTE | 2016-11-26 12:42 | CONS ---
Date/Time of Note Date/Time of Note DATE: 11/26/16 TIME: 12:32 Assessment/Plan Assessment/Plan Chief Complaint/Hosp Course Dyspnea: By history, concerning for his anginal equivalent. Trops negative, no heart failure, no PE by CTA. Symptoms worse after leg was revascularized possibly from increased cardiac output to the leg. Will need cardiac cath for eval but I will speak with his card painter, Dr. Mckeon. Acute renal failure: Mild and back to baseline after IVF Cardiomyopathy: unknown EF. No CHF by my exam CAD s/p CABG 1999: only one vein graft and HEREDIA patent. s/p PCI of SVG-OM 2014 PVD with claudication s/p stenting of right leg 11/21/2016 DM HTN -possible cardiac cath pending discussion with Dr. Mckeon -continue ASA, plavox -add lipitor -hold BB for now as baseline bradycardia -add imdur 30mg Problems: Consultation Date/Type/Reason Admit Date/Time Nov 25, 2016 at 14:57 Date of Consultation: Nov 26, 2016 Type of Consultation: Cardiology Reason for Consultation SOB Referring Provider: RONALD CORDOBA MD Hx of Present Illness 81 yo M with a h/o CAD s/p CABG ~1999, PCI of SVG to OM 2014, PVD with severe rest claudication s/p extensive stenting of entire right leg vasculature, DM, HTN, who presented with SOB. The pt has apparently been having increasing exertional SOB over the past several months. The hope was that his symptoms would improve after right leg revascularization but his symptoms have worsened. He notes that he has never had chest pain and his symptoms prior to CABG and his vein graft stent in 2014 were always dyspnea on exertion. No symptoms at rest currently but his family thought he had SOB yesterday so they brought him in. He does have some mild orthopnea but no PND or edema. per hPI Past Medical History per hPI Social History Smoking Status: Former smoker Exam/Review of Systems Vital Signs Vitals Vital Signs Date Time Temp Pulse Resp B/P Pulse Ox O2 Delivery O2 Flow Rate FiO2 11/26/16 12:02 60 11/26/16 07:11 97.8 18 125/61 98 11/25/16 15:28 Nasal Cannula 2.0 Intake and Output 11/25/16 11/25/16 11/26/16 15:00 23:00 07:00 Intake Total 300 ml Balance 300 ml Exam Constitutional: alert, oriented Psych: nl mood/affect, no complaints Head: atraumatic, normocephalic Neck: No jvd Respiratory: clear to auscultation, No crackles/rales, No diminished breath sounds Cardiovascular: regular rate and rhythm, No edema, No systolic murmur Gastrointestinal: non-tender, soft Neurological: nl mental status, nl speech Results EKG: sinus, nonspecific anterolateral TW changes, inferoposterior q waves Result Diagram: 11/26/16 0551 11/26/16 0551 Results 24 hrs Laboratory Tests Test 11/25/16 16:20 11/25/16 20:13 11/26/16 05:51 11/26/16 11:09 Free Thyroxine Index 2.81 Thyroxine (T4) 6.6 Triiodothyronine (T3) Uptake 42.6 H Troponin I 0.021 White Blood Count 6.9 # Red Blood Count 4.15 L Hemoglobin 12.6 L Hematocrit 37.2 L Mean Corpuscular Volume 89.6 Mean Corpuscular Hemoglobin 30.4 Mean Corpuscular Hemoglobin Concent 33.9 Red Cell Distribution Width 12.9 Platelet Count 145 Mean Platelet Volume 10.3 Neutrophils % 51.3 Lymphocytes % 36.2 Monocytes % 8.8 Eosinophils % 3.1 Basophils % 0.3 Nucleated Red Blood Cells % 0.0 Neutrophils # 3.5 Lymphocytes # 2.5 Monocytes # 0.6 Eosinophils # 0.2 Basophils # 0.0 Nucleated Red Blood Cells # 0.0 Sodium Level 137 Potassium Level 5.0 Chloride Level 104 Carbon Dioxide Level 26 Anion Gap 12 Blood Urea Nitrogen 22 H Creatinine 1.05 Glucose Level 197 Calcium Level 8.9 Total Bilirubin 0.3 Direct Bilirubin 0.00 Indirect Bilirubin 0.3 Aspartate Amino Transf (AST/SGOT) 22 Alanine Aminotransferase (ALT/SGPT) 36 Alkaline Phosphatase 66 Total Protein 6.6 Albumin 3.1 L Globulin 3.50 H Albumin/Globulin Ratio 0.88 Bedside Glucose 238 H Medications Medications Current Medications Amitriptyline HCl (Elavil) 10 mg QHS PO Last administered on 11/25/16 21:42; Admin Dose 10 MG; Start 11/25/16 at 21:00 Aspirin (Halfprin) 81 mg DAILY PO Last administered on 11/26/16 09:05; Admin Dose 81 MG; Start 11/26/16 at 09:00 Clopidogrel Bisulfate (plaVIX) 75 mg DAILY PO Last administered on 11/26/16 09:05; Admin Dose 75 MG; Start 11/26/16 at 09:00 Finasteride (Proscar) 5 mg DAILY PO Last administered on 11/26/16 09:06; Admin Dose 5 MG; Start 11/26/16 at 09:00 Insulin Glargine (Lantus) 10 unit DAILY SC Last administered on 11/26/16 09: 00; Admin Dose 10 UNIT; Start 11/26/16 at 09:00 Lisinopril (Zestril) 40 mg DAILY PO Last administered on 11/26/16 09:05; Admin Dose 40 MG; Start 11/26/16 at 09:00 Pyridoxine HCl (Vitamin B6) 25 mg DAILY PO Last administered on 11/26/16 09: 06; Admin Dose 25 MG; Start 11/26/16 at 09:00 Tamsulosin HCl (Flomax) 0.4 mg DAILY PO Last administered on 11/26/16 09:05; Admin Dose 0.4 MG; Start 11/26/16 at 09:00 Miscellaneous Information 1 g BID PO ; Start 11/25/16 at 21:00; Status UNV Linagliptin (Tradjenta) 5 mg DAILY PO Last administered on 11/26/16 09:05; Admin Dose 5 MG; Start 11/26/16 at 09:00 Zolpidem Tartrate (Ambien) 5 mg QHS PRN PO INSOMNIA; Start 11/25/16 at 16:00 Magnesium Hydroxide (Milk Of Mag) 30 ml DAILY PRN PO CONSTIPATION; Start 11/25 at 16:00 Pantoprazole (Protonix Tab) 40 mg DAILY@06 PO Last administered on 11/26/16 06:16; Admin Dose 40 MG; Start 11/26/16 at 06:00 Miscellaneous Information 1 ea NOTE XX ; Start 11/25/16 at 17:00 Glucose (Glutose) 15 gm Q15M PRN PO DECREASED GLUCOSE; Start 11/25/16 at 17:00 Glucose (Glutose) 22.5 gm Q15M PRN PO DECREASED GLUCOSE; Start 11/25/16 at 17: 00 Dextrose (D50w Syringe) 25 ml Q15M PRN IV DECREASED GLUCOSE; Start 11/25/16 at 17:00 Dextrose (D50w Syringe) 50 ml Q15M PRN IV DECREASED GLUCOSE; Start 11/25/16 at 17:00 Glucagon (Glucagen) 1 mg Q15M PRN IM DECREASED GLUCOSE; Start 11/25/16 at 17: 00 Glucose (Glutose) 15 gm Q15M PRN BUCCAL DECREASED GLUCOSE; Start 11/25/16 at 17:00 Miscellaneous Information (*Order Clarification Bulletin) (Colestipol Hcl 1 G, PLEASE ... Q8H XX Last administered on 11/25/16t 17:39; Admin Dose 1 EA; Start 11/25/16 at 17:00 ELIZABETH SANTOS Nov 26, 2016 12:42
[2016-11-26] MEDS ORDERED: HYPOGLYCEMIA PROTOCOL when Glucose is <70 mg/dL or symptomatic <90 mg/dL. XX ONE (13:30)
[2016-11-26] MEDS ORDERED: Discontinue current oral sulfonylureas (glyburide, glipizide, and/or glimepiride) prior to XX ONE (13:30)
[2016-11-26] MEDS: ACCU-CHEK XX SCH ×2 (13:50→21:09)
[2016-11-26] MEDS: ISOSORBIDE MONONITRATE(SR)30 MG TAB PO SCH (13:57)
--- NOTE | 2016-11-26 17:40 | HP ---
Date/Time of Note Date/Time of Note DATE: 11/26/16 TIME: 17:29 Assessment/Plan VTE Prophylaxis VTE Prophylaxis Intervention: heparin Lines/Catheters IV [facility] Urinary Cath still in place: No Assessment/Plan Problems: (1) Diabetes mellitus type 2 in nonobese Status: Chronic Comment: He has generally enjoyed adequate glycemic control. I will try and get him on his regular regimen here. (2) Mixed hyperlipidemia Status: Chronic Comment: Continue his outpatient regimen. (3) Essential hypertension Status: Chronic Comment: Continue his treatment including PANKAJ inhibitor. 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 Continue finasteride transition the tamsulosin over to doxazosin (5) Peripheral vascular disease due to secondary diabetes Status: Chronic Comment: Status post intervention. He has a post intervention complication which cardiology will assist us with (6) Osteoarthritis Status: Chronic Comment: Noted. Qualifiers: Osteoarthritis location: multiple joints Osteoarthritis type: primary Qualified Code: M15.0 - Primary osteoarthritis involving multiple joints (7) Dyspnea Status: Acute Comment: As per cardiology needs cardiac catheterization. The beta-blockers been transitioned over to nitrate. Qualifiers: Dyspnea type: unspecified Qualified Code: R06.00 - Dyspnea, unspecified type HPI/ROS Admit Date/Time Admit Date/Time Nov 25, 2016 at 14:57 Hx of Present Illness 81-year-old gentleman. He had undergone angiography and angioplasties by vascular surgery a few days ago. Shortly thereafter he developed worsening shortness of breath with PND and orthopnea. He denies any chest pain, chest pressure or neck squeezing symptoms. Patient was not able to lie down and breathe comfortably. He notified the physicians who advised him to present to the emergency room. In the emergency room he was evaluated and determination was made to admit him. ROS Constitutional: no complaints (No fevers chills or sweats) Eyes: no complaints ENT: no complaints Respiratory: shortness of breath Cardiovascular: orthopenea, other (His lower extremities improved after the vascular intervention with less pain more warmth), paroxysmal nocturnal dyspnea Gastrointestinal: no complaints Genitourinary: no complaints Musculoskeletal: no complaints Skin: no complaints Neurologic: no complaints Endocrine: no complaints Psychological: nl mood/affect, no complaints PMH/Family/Social Past Medical History Medical History: coronary artery disease, diabetes, high cholesterol, hypertension, other (Erectile dysfunction; decreased hearing; benign prostatic hypertrophy; old granulomatous disease on chest x-ray; peripheral vascular disease; osteoarthritis with DJD) Past Surgical History Past Surgical Hx: angioplasty, coronary bypass surgery, other (Status post PCI with stent; status post peripheral angiographic procedures. Status post lumbar laminectomies; status post left total hip replacement; status post microwave prostatectomy; status post right knee arthroscopy; status post tonsillectomy and adenoidectomy; status post cataract extraction and intraocular lens implantation) Family History Significant Family History: heart disease, diabetes, hypertension, other ( History of CVA) Social History Born in [place] and raised her to the age of 13 the [facility]. High school education. 3 years of experience in the [employer] and is [employer] eligible. 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 Generally physically active Alcohol Use: none Smoking Status: Former smoker Drug Use: none Exam/Review of Systems Vital Signs Vitals Vital Signs Date Time Temp Pulse Resp B/P Pulse Ox O2 Delivery O2 Flow Rate FiO2 11/26/16 16:39 98.7 56 18 129/63 98 11/25/16 15:28 Nasal Cannula 2.0 Intake and Output 11/25/16 11/25/16 11/26/16 15:00 23:00 07:00 Intake Total 300 ml Balance 300 ml Exam Constitutional: alert, oriented Eyes: EOMI, nl conjunctiva, nl lids ENMT: mucosa pink and moist, nl external ears & nose, nl lips & teeth, nl nasal mucosa & septum Neck: non-tender, other (Normal thyroid), supple Respiratory: crackles/rales (Basilar crackles), normal air movement Cardiovascular: nl pulses, regular rate and rhythm Gastrointestinal: nl liver, spleen, non-tender, soft Musculoskeletal: other (He has a blister on the right lower extremity the anterior portion of the ankle.) Extremities: normal pulses (These are improved from prior) Neurological: GEOPHYSICAL PARTY CHIEF II-XII intact, nl mental status, nl speech, nl strength Labs Result Diagram: 11/26/1655011/26/16550 Medications Medications Outpatient regimen Janumet [id number] twice daily; Colestid 1 g Q. a.m.; tamsulosin 0.4 nightly; lisinopril 40 mg twice daily; glimepiride 4 mg twice daily; finasteride 5 mg once a day; Lantus insulin 12 units nightly; doxazosin 2 mg nightly; amitriptyline 10 mg nightly; niacin 1 g nightly; aspirin 81 mg once a day; vitamin D 2000 units once a day; omega-3 fish oil 2 g twice daily; Current Medications Aspirin (Halfprin) 81 mg DAILY PO Last administered on 11/26/16 09:05; Admin Dose 81 MG; Start 11/26/16 at 09:00 Clopidogrel Bisulfate (plaVIX) 75 mg DAILY PO Last administered on 11/26/16 09:05; Admin Dose 75 MG; Start 11/26/16 at 09:00 Finasteride (Proscar) 5 mg DAILY PO Last administered on 11/26/16 09:06; Admin Dose 5 MG; Start 11/26/16 at 09:00 Lisinopril (Zestril) 40 mg DAILY PO Last administered on 11/26/16 09:05; Admin Dose 40 MG; Start 11/26/16 at 09:00 Pyridoxine HCl (Vitamin B6) 25 mg DAILY PO Last administered on 11/26/16 09: 06; Admin Dose 25 MG; Start 11/26/16 at 09:00 Tamsulosin HCl (Flomax) 0.4 mg DAILY PO Last administered on 11/26/16 09:05; Admin Dose 0.4 MG; Start 11/26/16 at 09:00 Miscellaneous Information 1 g BID PO ; Start 11/25/16 at 21:00; Status UNV Linagliptin (Tradjenta) 5 mg DAILY PO Last administered on 11/26/16 09:05; Admin Dose 5 MG; Start 11/26/16 at 09:00 Zolpidem Tartrate (Ambien) 5 mg QHS PRN PO INSOMNIA; Start 11/25/16 at 16:00 Magnesium Hydroxide (Milk Of Mag) 30 ml DAILY PRN PO CONSTIPATION; Start 11/25 at 16:00 Pantoprazole (Protonix Tab) 40 mg DAILY@06 PO Last administered on 11/26/16 06:16; Admin Dose 40 MG; Start 11/26/16 at 06:00 Miscellaneous Information 1 ea NOTE XX ; Start 11/25/16 at 17:00 Glucose (Glutose) 15 gm Q15M PRN PO DECREASED GLUCOSE; Start 11/25/16 at 17:00 Glucose (Glutose) 22.5 gm Q15M PRN PO DECREASED GLUCOSE; Start 11/25/16 at 17: 00 Dextrose (D50w Syringe) 25 ml Q15M PRN IV DECREASED GLUCOSE; Start 11/25/16 at 17:00 Dextrose (D50w Syringe) 50 ml Q15M PRN IV DECREASED GLUCOSE; Start 11/25/16 at 17:00 Glucagon (Glucagen) 1 mg Q15M PRN IM DECREASED GLUCOSE; Start 11/25/16 at 17: 00 Glucose (Glutose) 15 gm Q15M PRN BUCCAL DECREASED GLUCOSE; Start 11/25/16 at 17:00 Miscellaneous Information (*Order Clarification Bulletin) (Colestipol Hcl 1 G, PLEASE ... Q8H XX Last administered on 11/25/16 17:39; Admin Dose 1 EA; Start 11/25/16 at 17:00 Atorvastatin Calcium (Lipitor) 40 mg HS PO ; Start 11/26/16 at 21:00 Isosorbide Mononitrate (Imdur) 30 mg DAILY PO Last administered on 11/26/16 13:57; Admin Dose 30 MG; Start 11/26/16 at 13:00 Insulin Glargine (Lantus) 12 unit DAILY@08 SC ; Start 11/27/16 at 08:00 Diagnostic Test (Pha) (Accu-Chek) 1 ea 02 XX ; Start 11/27/16 at 02:00 Acetylcysteine (Nac) 1,200 mg BID PO ; Start 11/26/16 at 21:00; Stop 12/01/16 at 20:59 MARY ANNE HERBERT MD Nov 26, 2016 17:40
[2016-11-26] MEDS: INSULIN ASPART [NOVOLOG] 3 ML PEN SC SCH ×3 (18:24→21:00)
[2016-11-26] MEDS ORDERED: DOXAZOSIN 4 MG TAB PO SCH (21:00)
[2016-11-26] MEDS: NIACIN 500 MG PO SCH (21:11)
[2016-11-26] MEDS: ATORVASTATIN 40 MG TAB PO SCH (21:13)
[2016-11-26] MEDS: ACETYLCYSTEINE 600 MG CAP PO SCH (21:14)
[2016-11-26] MEDS: FISH OIL 1,000 MG CAP PO SCH (21:14)
[2016-11-27] VITALS (11 sets, daily range): BP systolic 86–144; BP diastolic 46–63; PULSE 54–60; RESP 15–20
[2016-11-27] MEDS: [UNRECOGNIZED DRUG - OTHER] XX SCH ×3 (01:00→17:00)
[2016-11-27] MEDS: COLESTIPOL HCL 1 GM XX SCH ×3 (01:00→17:00)
[2016-11-27] MEDS: ACCU-CHEK XX SCH ×4 (01:58→19:55)
[2016-11-27] MEDS: PANTOPRAZOLE (EC) 40 MG TAB PO SCH (06:38)
[2016-11-27 07:35] LABS: BASOPHILS % 0.3 % (0.0-2.0); EOSINOPHILS # 0.2 10^3/ul (0.0-0.5); HEMATOCRIT 37.9 % (42.0-52.0); HEMOGLOBIN 12.7 g/dl (14.0-18.0); LYMPHOCYTES # 2.5 10^3/ul (0.8-2.9); MEAN CORPUSCULAR HEMOGLOBIN 29.3 pg (29.0-33.0); MEAN CORPUSCULAR HGB CONC 33.5 g/dl (32.0-37.0); MEAN CORPUSCULAR VOLUME 87.3 fl (82.0-101.0); MEAN PLATELET VOLUME 10.4 fl (7.4-10.4); MONOCYTE # 0.5 10^3/ul (0.3-0.9); MONOCYTES % 6.1 % (0.0-11.0); NEUTROPHIL # 4.7 10^3/ul (1.6-7.5); NEUTROPHILS % 59.2 % (39.0-77.0); PLATELET COUNT 140 10^3/UL (140-415); POSITIVE DIFF @See below; RED BLOOD COUNT 4.34 10^6/ul (4.70-6.10); RED CELL DISTRIBUTION WIDTH 12.8 % (11.5-14.5); WHITE BLOOD COUNT 7.9 10^3/ul (4.8-10.8)
[2016-11-27 07:57] LABS: INR 0.99; PROTIME 13.1 Sec (12.2-14.2)
[2016-11-27 07:58] LABS: PARTIAL THROMBOPLASTIN TIME 31.4 Sec (25.0-35.0)
[2016-11-27 08:05] LABS: ALBUMIN 3.2 g/dl (3.3-4.9); ALBUMIN/GLOBULIN RATIO 0.94; BILIRUBIN,INDIRECT 0.5 mg/dl (0-1.1); BILIRUBIN,TOTAL 0.5 mg/dl (0.2-1.3); CREATININE 0.9 mg/dl (0.61-1.24); TOTAL PROTEIN 6.6 g/dl (6.1-8.1)
[2016-11-27 08:11] LABS: TROPONIN-I 0.018 ng/ml (0.00-0.12)
[2016-11-27] MEDS: ASPIRIN (EC) 81 MG TAB PO SCH (08:22)
[2016-11-27] MEDS: ISOSORBIDE MONONITRATE(SR)30 MG TAB PO SCH (08:23)
[2016-11-27] MEDS: ACETYLCYSTEINE 600 MG CAP PO SCH ×2 (08:23→21:08)
[2016-11-27] MEDS: FISH OIL 1,000 MG CAP PO SCH ×2 (08:25→21:08)
[2016-11-27] MEDS: PYRIDOXINE 50 MG TAB PO SCH (08:25)
[2016-11-27] MEDS: CLOPIDOGREL 75 MG TAB PO SCH (08:25)
[2016-11-27] MEDS: FINASTERIDE 5 MG TAB PO SCH (08:26)
[2016-11-27] MEDS: LISINOPRIL 20 MG TAB PO SCH (08:26)
[2016-11-27] MEDS: LINAGLIPTIN 5 MG TABLET PO SCH (08:26)
[2016-11-27 08:29] LABS: THYROID STIMULATING HORMONE 1.49 MIU/L (0.465-4.680)
[2016-11-27] MEDS: INSULIN ASPART [NOVOLOG] 3 ML PEN SC SCH ×7 (08:38→21:19)
[2016-11-27] MEDS: INSULIN GLARGINE [LANtus] 3 ML PEN SC SCH (08:39)
--- NOTE | 2016-11-27 08:49 | RADRPT ---
Echocardiogram Report Patient Name: DIA RUIZ Gender: Male Date: 1935 Study Date: 26-Nov-2016 Stonemason Apprentice: AISHA Location: 503 Ref. Physician: ELIZABETH DILLARD Quality: Good Procedures: Transthoracic echocardiogram with complete 2D, M-Mode, and doppler examination. Indications: Coronary Artery Disease. Shortness of breath. 2D/M Mode Doppler Measurement Value Normal Ranges Measurement Value Normal Ranges AoR Diam MM 3.2 cm STEPHANIE Vmax 1.2 cm2 LA/Ao MM 1.3 STEPHANIE VTI 1.2 cm2 LA Dimen MM 4.1 cm AV Mean Artis 1.7 m/sec LVIDd 2D 4.3 3.5 - 5.6 cm AV Mean PG 12.7 mmHg LVIDs 2D 3.1 2.1 - 4.1 cm AV Peak Artis 2.3 m/sec LVPWd 2D 1.4 0.6 - 1.1 cm AV Peak PG 20.6 mmHg IVSd 2D 1.4 0.6 - 1.1 cm AV VTI 58.2 cm EDV 2D 84.6 cm3 LVOT Peak Artis 0.9 m/sec ESV 2D 30.2 cm3 LVOT Peak PG 3.0 mmHg EF 2D 55.0 50.0 - 65.0 % MV E Peak Artis 0.3 m/sec LVOT Diam 2.0 cm MV A Peak Artis 0.7 m/sec MV E/A 0.5 MV Decel Time 461 msec MV Decel [place] 1 MV E/A 0.5 TR Peak Artis 2.4 m/sec TR Peak PG 22.7 mmHg Findings Left Ventricle: Lower limits of normal systolic function. Normal left ventricular cavity size. Mild concentric left ventricular hypertrophy. Ejection fraction is visually estimated at 50 %. Abnormal septal motion due to cardiac surgery. Inferior and inferolateral hypokinesis. Right Ventricle: Normal right ventricular size. Normal right ventricular systolic function. Left Atrium: There is moderate enlargement of left atrium. Right Atrium: There is mild enlargement of right atrium. Atrial Septum: Atrial septum color Doppler interrogation consistent with a PFO. Mitral Valve: Normal appearance of the mitral valve. Normal appearance and function of the mitral valve with trace physiologic regurgitation. Aortic Valve: Mild to moderate aortic stenosis visually. Aortic valve Max velocity 2.27 m/sec. Max PG 20.60 mmHg. Mean PG 12.70 mmHg. Aortic valve area 1.20 cm2. Aortic cusps appear moderately calcified. Mild aortic valve regurgitation. Tricuspid Valve: Estimated peak PA systolic pressure 30 mmHg. There is mild tricuspid regurgitation. Pulmonic Valve: There is mild pulmonic regurgitation. Pericardium: Normal pericardium with no significant pericardial effusion. Aorta: Normal aortic root. IVC: Normal size and normal respiratory collapse consistent visually with normal right atrial pressure. Conclusions Lower limits of normal systolic function. Normal left ventricular cavity size. Mild concentric left ventricular hypertrophy. Ejection fraction is visually estimated at 50 %. Abnormal septal motion due to cardiac surgery. Inferior and inferolateral hypokinesis. Mild to moderate aortic stenosis. Aortic valve Max velocity 2.27 m/sec. Max PG 20.60 mmHg. Mean PG 12.70 mmHg. Aortic valve area 1.20 cm2. Aortic cusps appear moderately calcified. Mild aortic valve regurgitation. Atrial septum color Doppler interrogation consistent with a PFO. Estimated peak PA systolic pressure 30 mmHg based on RA pressure of 3 mmHg. Electronically Signed By: Elizabeth Dillard 27-Nov-2016 08:48:44 -0700 Patient Name: DIA RUIZ Study Date: 26-Nov-2016 [id number]
--- NOTE | 2016-11-27 08:55 | CONS ---
Date/Time of Note Date/Time of Note DATE: 11/27/16 TIME: 08:53 Assessment/Plan Assessment/Plan Chief Complaint/Hosp Course Dyspnea: By history, concerning for his anginal equivalent. Trops negative, no heart failure, no PE by CTA. Symptoms worse after leg was revascularized possibly from increased cardiac output to the leg. Will need cardiac cath for eval Mild-mod : not hemodynamically significant by echo Acute renal failure: Mild and back to baseline after IVF Cardiomyopathy: unknown EF. No CHF by my exam CAD s/p CABG 1999: only one vein graft and HEREDIA patent. s/p PCI of SVG-OM 2014 PVD with claudication s/p stenting of right leg 11/21/2016 DM HTN -cardiac cath am ~10am -continue ASA, plavox -lipitor -hold BB for now as baseline bradycardia -imdur 30mg Problems: Consultation Date/Type/Reason Admit Date/Time Nov 25, 2016 at 14:57 Initial Consult Date 11/26/16 Type of Consultation: Cardiology Referring Provider: RONALD CORDOBA MD 24 HR Interval Summary Free Text/Dictation No o/n events. No further SOB. Exam/Review of Systems Vital Signs Vitals Vital Signs Date Time Temp Pulse Resp B/P Pulse Ox O2 Delivery O2 Flow Rate FiO2 11/27/16 08:06 59 11/27/16 07:39 97.3 18 124/63 98 11/25/16 15:28 Nasal Cannula 2.0 Intake and Output 11/26/16 11/26/16 11/27/16 15:00 23:00 07:00 Intake Total 720 ml Balance 720 ml Exam Constitutional: alert, oriented Psych: nl mood/affect, no complaints Head: atraumatic, normocephalic Neck: No jvd Respiratory: clear to auscultation, No crackles/rales Cardiovascular: regular rate and rhythm, systolic murmur (3/6 mid peaking BRANDAN) , No edema Gastrointestinal: non-tender, soft Neurological: nl mental status, nl speech Results Result Diagram: 11/27/16 0715 11/27/16 0715 Results 24 hrs Laboratory Tests Test 11/26/16 11:09 11/26/16 13:56 11/26/16 14:05 11/26/16 18:21 Bedside Glucose 238 H 237 H 227 H Hemoglobin A1c 8.3 H B-Type Natriuretic Peptide 720 H Test 11/26/16 21:07 11/27/16 07:15 11/27/16 08:33 Bedside Glucose 92 195 White Blood Count 7.9 Red Blood Count 4.34 L Hemoglobin 12.7 L Hematocrit 37.9 L Mean Corpuscular Volume 87.3 Mean Corpuscular Hemoglobin 29.3 Mean Corpuscular Hemoglobin Concent 33.5 Red Cell Distribution Width 12.8 Platelet Count 140 Mean Platelet Volume 10.4 Neutrophils % 59.2 Lymphocytes % 32.0 Monocytes % 6.1 Eosinophils % 2.0 Basophils % 0.3 Nucleated Red Blood Cells % 0.0 Neutrophils # 4.7 Lymphocytes # 2.5 Monocytes # 0.5 Eosinophils # 0.2 Basophils # 0.0 Nucleated Red Blood Cells # 0.0 Prothrombin Time 13.1 Prothrombin Time Ratio 1.0 INR International Normalized Ratio 0.99 Activated Partial Thromboplast Time 31.4 Sodium Level 138 Potassium Level 4.0 Chloride Level 107 Carbon Dioxide Level 21 Anion Gap 14 Blood Urea Nitrogen 19 Creatinine 0.90 Glucose Level 195 Calcium Level 9.0 Total Bilirubin 0.5 Direct Bilirubin 0.00 Indirect Bilirubin 0.5 Aspartate Amino Transf (AST/SGOT) 26 Alanine Aminotransferase (ALT/SGPT) 39 Alkaline Phosphatase 67 Troponin I 0.018 B-Type Natriuretic Peptide 512 H Total Protein 6.6 Albumin 3.2 L Globulin 3.40 H Albumin/Globulin Ratio 0.94 Thyroid Stimulating Hormone (TSH) 1.490 Medications Medications Current Medications Aspirin (Halfprin) 81 mg DAILY PO Last administered on 11/26/16 09:05; Admin Dose 81 MG; Start 11/26/16 at 09:00 Clopidogrel Bisulfate (plaVIX) 75 mg DAILY PO Last administered on 11/26/16 09:05; Admin Dose 75 MG; Start 11/26/16 at 09:00 Finasteride (Proscar) 5 mg DAILY PO Last administered on 11/26/16 09:06; Admin Dose 5 MG; Start 11/26/16 at 09:00 Lisinopril (Zestril) 40 mg DAILY PO Last administered on 11/26/16 09:05; Admin Dose 40 MG; Start 11/26/16 at 09:00 Pyridoxine HCl (Vitamin B6) 25 mg DAILY PO Last administered on 11/26/16 09: 06; Admin Dose 25 MG; Start 11/26/16 at 09:00 Miscellaneous Information 1 g BID PO ; Start 11/25/16 at 21:00; Status UNV Linagliptin (Tradjenta) 5 mg DAILY PO Last administered on 11/26/16 09:05; Admin Dose 5 MG; Start 11/26/16 at 09:00 Zolpidem Tartrate (Ambien) 5 mg QHS PRN PO INSOMNIA; Start 11/25/16 at 16:00 Magnesium Hydroxide (Milk Of Mag) 30 ml DAILY PRN PO CONSTIPATION; Start 11/25 at 16:00 Pantoprazole (Protonix Tab) 40 mg DAILY@06 PO Last administered on 11/27/16 06:38; Admin Dose 40 MG; Start 11/26/16 at 06:00 Miscellaneous Information 1 ea NOTE XX ; Start 11/25/16 at 17:00 Glucose (Glutose) 15 gm Q15M PRN PO DECREASED GLUCOSE; Start 11/25/16 at 17:00 Glucose (Glutose) 22.5 gm Q15M PRN PO DECREASED GLUCOSE; Start 11/25/16 at 17: 00 Dextrose (D50w Syringe) 25 ml Q15M PRN IV DECREASED GLUCOSE; Start 11/25/16 at 17:00 Dextrose (D50w Syringe) 50 ml Q15M PRN IV DECREASED GLUCOSE; Start 11/25/16 at 17:00 Glucagon (Glucagen) 1 mg Q15M PRN IM DECREASED GLUCOSE; Start 11/25/16 at 17: 00 Glucose (Glutose) 15 gm Q15M PRN BUCCAL DECREASED GLUCOSE; Start 11/25/16 at 17:00 Miscellaneous Information (*Order Clarification Bulletin) (Colestipol Hcl 1 G, PLEASE ... Q8H XX Last administered on 11/25/16 17:39; Admin Dose 1 EA; Start 11/25/16 at 17:00 Atorvastatin Calcium (Lipitor) 40 mg HS PO Last administered on 11/26/16 21: 13; Admin Dose 40 MG; Start 11/26/16 at 21:00 Isosorbide Mononitrate (Imdur) 30 mg DAILY PO Last administered on 11/26/16 13:57; Admin Dose 30 MG; Start 11/26/16 at 13:00 Insulin Glargine (Lantus) 12 unit DAILY@08 SC ; Start 11/27/16 at 08:00 Diagnostic Test (Pha) (Accu-Chek) 1 XX ; Start 11/27/16 at 02:00 Acetylcysteine (Nac) 1,200 mg BID PO Last administered on 11/26/16 21:14; Admin Dose 1,200 MG; Start 11/26/16 at 21:00; Stop 12/01/16 at 20:59 Fish Oil (Fish Oil) 2,000 mg BID PO Last administered on 11/26/16 21:14; Admin Dose 2,000 MG; Start 11/26/16 at 21:00 Niacin (Niacin (Sr)) 500 mg QHS PO Last administered on 11/26/16 21:11; Admin Dose 500 MG; Start 11/26/16 at 21:00 Doxazosin Mesylate (Cardura) 4 mg HS PO Last administered on 11/26/16 21:13; Admin Dose 4 MG; Start 11/26/16 at 21:00 ELIZABETH SANTOS Nov 27, 2016 08:55
--- NOTE | 2016-11-27 13:59 | PN ---
Date/Time of Note Date/Time of Note DATE: 11/27/16 TIME: 13:51 Assessment/Plan VTE Prophylaxis VTE Prophylaxis Intervention: heparin Lines/Catheters IV C[facility]ter Type (from [facility] Peripheral IV Urinary Cath still in place: No Assessment/Plan Problems: (1) Dyspnea Status: Acute Comment: His dyspnea continues in an intermittent fashion. I am concerned this represents atypical angina equivalent symptoms. As such I am not comfortable with the idea of trying to send him home. I believe he needs left heart catheterization needs this as expeditiously as possible. Qualifiers: Dyspnea type: unspecified Qualified Code: R06.00 - Dyspnea, unspecified type (2) Essential hypertension Status: Chronic Comment: Adequate control. His blood pressures actually come down with usage of nonselective alpha-corwin for his prostate. I will go to a selective alpha- corwin. (3) Mixed hyperlipidemia Status: Chronic Comment: Remains on full dose treatment for this. (4) Diabetes mellitus type 2 in nonobese Status: Chronic Comment: Upward adjust the mealtime insulin so that he is using less of the corrective insulin. (5) Peripheral vascular disease due to secondary diabetes Status: Chronic Comment: Noted and improved. 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 Comment: As above go to selective alpha-corwin Subjective 24 Hr Interval Summary Constitutional: no complaints Eyes: no complaints ENT: no complaints Respiratory: shortness of breath Cardiovascular: no complaints Gastrointestinal: no complaints Exam/Review of Systems Vital Signs Vitals Vital Signs Date Time Temp Pulse Resp B/P Pulse Ox O2 Delivery O2 Flow Rate FiO2 11/27/16 12:16 58 11/27/16 11:23 96.6 17 86/46 97 11/25/16 15:28 Nasal Cannula 2.0 Intake and Output 11/26/16 11/26/16 11/27/16 15:00 23:00 07:00 Intake Total 720 ml Balance 720 ml Exam Constitutional: alert, oriented Neck: non-tender, supple Respiratory: clear to auscultation, normal air movement Cardiovascular: nl pulses, regular rate and rhythm Gastrointestinal: nl liver, spleen, non-tender, soft Results Result Diagram: 11/27/16 0715 11/27/16 0715 Results 24 hrs Laboratory Tests Test 11/26/16 13:56 11/26/16 14:05 11/26/16 18:21 11/26/16 21:07 Bedside Glucose 237 H 227 H 92 Hemoglobin A1c 8.3 H B-Type Natriuretic Peptide 720 H Test 11/27/16 07:15 11/27/16 08:33 11/27/16 11:44 White Blood Count 7.9 Red Blood Count 4.34 L Hemoglobin 12.7 L Hematocrit 37.9 L Mean Corpuscular Volume 87.3 Mean Corpuscular Hemoglobin 29.3 Mean Corpuscular Hemoglobin Concent 33.5 Red Cell Distribution Width 12.8 Platelet Count 140 Mean Platelet Volume 10.4 Neutrophils % 59.2 Lymphocytes % 32.0 Monocytes % 6.1 Eosinophils % 2.0 Basophils % 0.3 Nucleated Red Blood Cells % 0.0 Neutrophils # 4.7 Lymphocytes # 2.5 Monocytes # 0.5 Eosinophils # 0.2 Basophils # 0.0 Nucleated Red Blood Cells # 0.0 Prothrombin Time 13.1 Prothrombin Time Ratio 1.0 INR International Normalized Ratio 0.99 Activated Partial Thromboplast Time 31.4 Sodium Level 138 Potassium Level 4.0 Chloride Level 107 Carbon Dioxide Level 21 Anion Gap 14 Blood Urea Nitrogen 19 Creatinine 0.90 Glucose Level 195 Calcium Level 9.0 Total Bilirubin 0.5 Direct Bilirubin 0.00 Indirect Bilirubin 0.5 Aspartate Amino Transf (AST/SGOT) 26 Alanine Aminotransferase (ALT/SGPT) 39 Alkaline Phosphatase 67 Troponin I 0.018 B-Type Natriuretic Peptide 512 H Total Protein 6.6 Albumin 3.2 L Globulin 3.40 H Albumin/Globulin Ratio 0.94 Thyroid Stimulating Hormone (TSH) 1.490 Bedside Glucose 195 244 H Medications Medications Current Medications Aspirin (Halfprin) 81 mg DAILY PO Last administered on 11/27/16 08:22; Admin Dose 81 MG; Start 11/26/16 at 09:00 Clopidogrel Bisulfate (plaVIX) 75 mg DAILY PO Last administered on 11/27/16 08:25; Admin Dose 75 MG; Start 11/26/16 at 09:00 Finasteride (Proscar) 5 mg DAILY PO Last administered on 11/27/16 08:26; Admin Dose 5 MG; Start 11/26/16 at 09:00 Lisinopril (Zestril) 40 mg DAILY PO Last administered on 11/27/16 08:26; Admin Dose 40 MG; Start 11/26/16 at 09:00 Pyridoxine HCl (Vitamin B6) 25 mg DAILY PO Last administered on 11/27/16 08: 25; Admin Dose 25 MG; Start 11/26/16 at 09:00 Miscellaneous Information 1 g BID PO ; Start 11/25/16 at 21:00; Status UNV Linagliptin (Tradjenta) 5 mg DAILY PO Last administered on 11/27/16 08:26; Admin Dose 5 MG; Start 11/26/16 at 09:00 Zolpidem Tartrate (Ambien) 5 mg QHS PRN PO INSOMNIA; Start 11/25/16 at 16:00 Magnesium Hydroxide (Milk Of Mag) 30 ml DAILY PRN PO CONSTIPATION; Start 11/25 at 16:00 Pantoprazole (Protonix Tab) 40 mg DAILY@06 PO Last administered on 11/27/16 06:38; Admin Dose 40 MG; Start 11/26/16 at 06:00 Miscellaneous Information 1 ea NOTE XX ; Start 11/25/16 at 17:00 Glucose (Glutose) 15 gm Q15M PRN PO DECREASED GLUCOSE; Start 11/25/16 at 17:00 Glucose (Glutose) 22.5 gm Q15M PRN PO DECREASED GLUCOSE; Start 11/25/16 at 17: 00 Dextrose (D50w Syringe) 25 ml Q15M PRN IV DECREASED GLUCOSE; Start 11/25/16 at 17:00 Dextrose (D50w Syringe) 50 ml Q15M PRN IV DECREASED GLUCOSE; Start 11/25/16 at 17:00 Glucagon (Glucagen) 1 mg Q15M PRN IM DECREASED GLUCOSE; Start 11/25/16 at 17: 00 Glucose (Glutose) 15 gm Q15M PRN BUCCAL DECREASED GLUCOSE; Start 11/25/16 at 17:00 Miscellaneous Information (*Order Clarification Bulletin) (Colestipol Hcl 1 G, PLEASE ... Q8H XX Last administered on 11/25/16 17:39; Admin Dose 1 EA; Start 11/25/16 at 17:00 Atorvastatin Calcium (Lipitor) 40 mg HS PO Last administered on 11/26/16 21: 13; Admin Dose 40 MG; Start 11/26/16 at 21:00 Isosorbide Mononitrate (Imdur) 30 mg DAILY PO Last administered on 11/27/16 08:23; Admin Dose 30 MG; Start 11/26/16 at 13:00 Insulin Glargine (Lantus) 12 unit DAILY@08 SC Last administered on 11/27/16 08:39; Admin Dose 12 UNIT; Start 11/27/16 at 08:00 Diagnostic Test (Pha) (Accu-Chek) 1 ea 02 XX ; Start 11/27/16 at 02:00 Acetylcysteine (Nac) 1,200 mg BID PO Last administered on 11/27/16 08:23; Admin Dose 1,200 MG; Start 11/26/16 at 21:00; Stop 12/01/16 at 20:59 Fish Oil (Fish Oil) 2,000 mg BID PO Last administered on 11/27/16 08:25; Admin Dose 2,000 MG; Start 11/26/16 at 21:00 Niacin (Niacin (Sr)) 500 mg QHS PO Last administered on 11/26/16 21:11; Admin Dose 500 MG; Start 11/26/16 at 21:00 Doxazosin Mesylate (Cardura) 4 mg HS PO Last administered on 11/26/16 21:13; Admin Dose 4 MG; Start 11/26/16 at 21:00 MARY ANNE HERBERT MD Nov 27, 2016 13:59
--- NOTE | 2016-11-27 20:46 | PN ---
Date/Time of Note Date/Time of Note DATE: 11/27/16 TIME: 20:42 Assessment/Plan Lines/Catheters IV Catheter Type (from Nrsg): Peripheral IV Brown in Place (from Nrsg): No Assessment/Plan Chief Complaint/Hosp Course -Bilateral lower extremity atherosclerosis with right lower extremity rest pain and left lower extremity disabling claudication. The patient had presented with shortness of breath and is currently being worked up from a medical standpoint. From a vascular surgery standpoint, the patient needs no further intervention for now. -Will plan for the patient to optimize during this hospitalization and plan for his left lower extremity as an outpatient -Appreciate cardiology evaluation -Optimize vascular status (BP, medications, diet, nutrition, exercise, sugar control, antiplatelets). -Discussed findings, plan and management with the patient and daughter at the bedside and they understand. -Thank you for allowing us to partake in the care of your patient. Please call with any questions. Problems: Subjective 24 Hr Interval Summary no new vascular events overnight Exam/Review of Systems Vital Signs Vitals Vital Signs Date Time Temp Pulse Resp B/P Pulse Ox O2 Delivery O2 Flow Rate FiO2 11/27/16 20:00 97.5 58 15 106/53 98 11/25/16 15:28 Nasal Cannula 2.0 Intake and Output 11/26/16 11/26/16 11/27/16 15:00 23:00 07:00 Intake Total 720 ml Balance 720 ml Exam Free Text/Dictation GENERAL: Alert and oriented x3, PULMONARY: Coarse breath sounds bilateral CARDIOVASCULAR: S1, S2 present ABDOMEN: Soft, nontender, nondistended. Bowel sounds positive. EXTREMITIES: Right lower extremity palpable femoral pulse. Dopplerable posterior tibial signal. Motor and sensory intact. Capillary refill 3 seconds. Light blister on the anterior aspect of the lower leg near his previous pedal access, which is superficial and dry. Left lower extremity palpable femoral pulse, nonpalpable pedal pulse. Motor and sensory intact. Capillary refill 4 seconds. Results Result Diagram: 11/27/1615 11/27/16714 RONALD CORDOBA MD Nov 27, 2016 20:46
[2016-11-27] MEDS: ATORVASTATIN 40 MG TAB PO SCH (21:08)
[2016-11-27] MEDS: TAMSULOSIN (SR) 0.4 MG CAP PO SCH (21:09)
[2016-11-27] MEDS: NIACIN 500 MG PO SCH (21:09)
--- NOTE | 2016-11-27 23:49 | CONS ---
Date/Time of Note Date/Time of Note DATE: 11/27/16 TIME: 23:49 Consultation Date/Type/Reason Admit Date/Time Nov 25, 2016 at 14:57 Constitutional: no complaints Eyes: no complaints ENT: no complaints Respiratory: shortness of breath Cardiovascular: no complaints Gastrointestinal: no complaints Genitourinary: no complaints Musculoskeletal: no complaints Skin: no complaints Neurologic: no complaints Psychological: nl mood/affect, no complaints Past Medical History Medical History: coronary artery disease, diabetes, high cholesterol, hypertension, other (Erectile dysfunction; decreased hearing; benign prostatic hypertrophy; old granulomatous disease on chest x-ray; peripheral vascular disease; osteoarthritis with DJD) Past Surgical History Past Surgical Hx: angioplasty, coronary bypass surgery, other (Status post PCI with stent; status post peripheral angiographic procedures. Status post lumbar laminectomies; status post left total hip replacement; status post microwave prostatectomy; status post right knee arthroscopy; status post tonsillectomy and adenoidectomy; status post cataract extraction and intraocular lens implantation) Social History Alcohol Use: none Smoking Status: Former smoker Drug Use: none Exam/Review of Systems Vital Signs Vitals Vital Signs Date Time Temp Pulse Resp B/P Pulse Ox O2 Delivery O2 Flow Rate FiO2 11/27/16 22:50 97.9 56 20 142/46 99 11/25/16 15:28 Nasal Cannula 2.0 Intake and Output 11/26/16 11/26/16 11/27/16 15:00 23:00 07:00 Intake Total 720 ml Balance 720 ml Results Result Diagram: 11/27/16 0715 11/27/16 0715 Results 24 hrs Laboratory Tests Test 11/27/16 07:15 11/27/16 08:33 11/27/16 11:44 11/27/16 14:24 White Blood Count 7.9 Red Blood Count 4.34 L Hemoglobin 12.7 L Hematocrit 37.9 L Mean Corpuscular Volume 87.3 Mean Corpuscular Hemoglobin 29.3 Mean Corpuscular Hemoglobin Concent 33.5 Red Cell Distribution Width 12.8 Platelet Count 140 Mean Platelet Volume 10.4 Neutrophils % 59.2 Lymphocytes % 32.0 Monocytes % 6.1 Eosinophils % 2.0 Basophils % 0.3 Nucleated Red Blood Cells % 0.0 Neutrophils # 4.7 Lymphocytes # 2.5 Monocytes # 0.5 Eosinophils # 0.2 Basophils # 0.0 Nucleated Red Blood Cells # 0.0 Prothrombin Time 13.1 Prothrombin Time Ratio 1.0 INR International Normalized Ratio 0.99 Activated Partial Thromboplast Time 31.4 Sodium Level 138 Potassium Level 4.0 Chloride Level 107 Carbon Dioxide Level 21 Anion Gap 14 Blood Urea Nitrogen 19 Creatinine 0.90 Glucose Level 195 Calcium Level 9.0 Total Bilirubin 0.5 Direct Bilirubin 0.00 Indirect Bilirubin 0.5 Aspartate Amino Transf (AST/SGOT) 26 Alanine Aminotransferase (ALT/SGPT) 39 Alkaline Phosphatase 67 Troponin I 0.018 B-Type Natriuretic Peptide 512 H Total Protein 6.6 Albumin 3.2 L Globulin 3.40 H Albumin/Globulin Ratio 0.94 Thyroid Stimulating Hormone (TSH) 1.490 Bedside Glucose 195 244 H 274 H Test 11/27/16 17:47 11/27/16 21:05 Bedside Glucose 211 215 Medications Medications Current Medications Aspirin (Halfprin) 81 mg DAILY PO Last administered on 11/27/16 08:22; Admin Dose 81 MG; Start 11/26/16 at 09:00 Clopidogrel Bisulfate (plaVIX) 75 mg DAILY PO Last administered on 11/27/16 08:25; Admin Dose 75 MG; Start 11/26/16 at 09:00 Finasteride (Proscar) 5 mg DAILY PO Last administered on 11/27/16 08:26; Admin Dose 5 MG; Start 11/26/16 at 09:00 Lisinopril (Zestril) 40 mg DAILY PO Last administered on 11/27/16 08:26; Admin Dose 40 MG; Start 11/26/16 at 09:00 Pyridoxine HCl (Vitamin B6) 25 mg DAILY PO Last administered on 11/27/16 08: 25; Admin Dose 25 MG; Start 11/26/16 at 09:00 Miscellaneous Information 1 g BID PO ; Start 11/25/16 at 21:00; Status UNV Linagliptin (Tradjenta) 5 mg DAILY PO Last administered on 11/27/16 08:26; Admin Dose 5 MG; Start 11/26/16 at 09:00 Zolpidem Tartrate (Ambien) 5 mg QHS PRN PO INSOMNIA; Start 11/25/16 at 16:00 Magnesium Hydroxide (Milk Of Mag) 30 ml DAILY PRN PO CONSTIPATION; Start 11/25 at 16:00 Pantoprazole (Protonix Tab) 40 mg DAILY@06 PO Last administered on 11/27/16 06:38; Admin Dose 40 MG; Start 11/26/16 at 06:00 Miscellaneous Information 1 ea NOTE XX ; Start 11/25/16 at 17:00 Glucose (Glutose) 15 gm Q15M PRN PO DECREASED GLUCOSE; Start 11/25/16 at 17:00 Glucose (Glutose) 22.5 gm Q15M PRN PO DECREASED GLUCOSE; Start 11/25/16 at 17: 00 Dextrose (D50w Syringe) 25 ml Q15M PRN IV DECREASED GLUCOSE; Start 11/25/16 at 17:00 Dextrose (D50w Syringe) 50 ml Q15M PRN IV DECREASED GLUCOSE; Start 11/25/16 at 17:00 Glucagon (Glucagen) 1 mg Q15M PRN IM DECREASED GLUCOSE; Start 11/25/16 at 17: 00 Glucose (Glutose) 15 gm Q15M PRN BUCCAL DECREASED GLUCOSE; Start 11/25/16 at 17:00 Miscellaneous Information (*Order Clarification Bulletin) (Colestipol Hcl 1 G, PLEASE ... Q8H XX Last administered on 11/25/16 17:39; Admin Dose 1 EA; Start 11/25/16 at 17:00 Atorvastatin Calcium (Lipitor) 40 mg HS PO Last administered on 11/27/16 21: 08; Admin Dose 40 MG; Start 11/26/16 at 21:00 Isosorbide Mononitrate (Imdur) 30 mg DAILY PO Last administered on 11/27/16 08:23; Admin Dose 30 MG; Start 11/26/16 at 13:00 Insulin Glargine (Lantus) 12 unit DAILY@08 SC Last administered on 11/27/16 08:39; Admin Dose 12 UNIT; Start 11/27/16 at 08:00 Diagnostic Test (Pha) (Accu-Chek) 1 ea 02 XX ; Start 11/27/16 at 02:00 Acetylcysteine (Nac) 1,200 mg BID PO Last administered on 11/27/16 21:08; Admin Dose 1,200 MG; Start 11/26/16 at 21:00; Stop 12/01/16 at 20:59 Fish Oil (Fish Oil) 2,000 mg BID PO Last administered on 11/27/16 21:08; Admin Dose 2,000 MG; Start 11/26/16 at 21:00 Niacin (Niacin (Sr)) 500 mg QHS PO Last administered on 11/27/16 21:09; Admin Dose 500 MG; Start 11/26/16 at 21:00 Tamsulosin HCl (Flomax) 0.4 mg BID PO Last administered on 11/27/16 21:09; Admin Dose 0.4 MG; Start 11/27/16 at 21:00 JUANITO RUTLEDGE DPM Nov 27, 2016 23:49
[2016-11-28] VITALS (12 sets, daily range): BP systolic 99–131; BP diastolic 52–62; PULSE 58–63; RESP 16–18
[2016-11-28] MEDS: COLESTIPOL 1 GM PO SCH ×3 (00:59→20:14)
[2016-11-28] MEDS: ACCU-CHEK XX SCH ×4 (02:00→19:55)
[2016-11-28] MEDS: PANTOPRAZOLE (EC) 40 MG TAB PO SCH (06:20)
[2016-11-28] MEDS: FISH OIL 1,000 MG CAP PO SCH ×2 (08:31→20:14)
[2016-11-28] MEDS: ACETYLCYSTEINE 600 MG CAP PO SCH ×2 (08:31→20:15)
[2016-11-28] MEDS: ISOSORBIDE MONONITRATE(SR)30 MG TAB PO SCH (08:32)
[2016-11-28] MEDS: LISINOPRIL 20 MG TAB PO SCH (08:32)
[2016-11-28] MEDS: TAMSULOSIN (SR) 0.4 MG CAP PO SCH ×2 (08:32→20:14)
[2016-11-28] MEDS: CLOPIDOGREL 75 MG TAB PO SCH (08:32)
[2016-11-28] MEDS: PYRIDOXINE 50 MG TAB PO SCH (08:33)
[2016-11-28] MEDS: LINAGLIPTIN 5 MG TABLET PO SCH (08:33)
[2016-11-28] MEDS: FINASTERIDE 5 MG TAB PO SCH (08:33)
[2016-11-28] MEDS: INSULIN ASPART [NOVOLOG] 3 ML PEN SC SCH ×7 (08:34→20:15)
[2016-11-28] MEDS: INSULIN GLARGINE [LANtus] 3 ML PEN SC SCH (08:36)
[2016-11-28] MEDS: ASPIRIN (EC) 81 MG TAB PO SCH (08:38)
--- NOTE | 2016-11-28 08:51 | CONS ---
Date/Time of Note Date/Time of Note DATE: 11/28/16 TIME: 08:49 Assessment/Plan Assessment/Plan Chief Complaint/Hosp Course Dyspnea: By history, concerning for his anginal equivalent. Trops negative, no heart failure, no PE by CTA. Symptoms worse after leg was revascularized possibly from increased cardiac output to the leg. Will need cardiac cath for eval Mild-mod : not hemodynamically significant by echo Acute renal failure: Mild and back to baseline after IVF Cardiomyopathy: unknown EF. No CHF by my exam CAD s/p CABG 1999: only one vein graft and HEREDIA patent. s/p PCI of SVG-OM 2014 PVD with claudication s/p stenting of right leg 11/21/2016 DM HTN -cardiac cath tomorrow am ~10am, NPO after midnight -continue ASA, plavox -lipitor -hold BB for now as baseline bradycardia -imdur 30mg Problems: Consultation Date/Type/Reason Admit Date/Time Nov 25, 2016 at 14:57 Initial Consult Date 11/26/16 Type of Consultation: Cardiology Referring Provider: RONALD CORDOBA MD 24 HR Interval Summary Free Text/Dictation Had some dizziness when he stood up and SBP was 80s. Otherwise doing well. No further SOB Exam/Review of Systems Vital Signs Vitals Vital Signs Date Time Temp Pulse Resp B/P Pulse Ox O2 Delivery O2 Flow Rate FiO2 11/28/16 08:44 62 11/28/16 07:55 97.7 18 131/62 99 11/25/16 15:28 Nasal Cannula 2.0 Intake and Output 11/27/16 11/27/16 11/28/16 15:00 23:00 07:00 Intake Total 250 ml 2100 ml 250 ml Balance 250 ml 2100 ml 250 ml Exam Constitutional: alert, oriented Psych: nl mood/affect, no complaints Neck: No jvd Respiratory: clear to auscultation, No crackles/rales Cardiovascular: regular rate and rhythm, No edema Gastrointestinal: non-tender, soft Neurological: nl mental status, nl speech Results Result Diagram: 11/27/16 0715 11/27/16 0715 Results 24 hrs Laboratory Tests Test 11/27/16 11:44 11/27/16 14:24 11/27/16 17:47 11/27/16 21:05 Bedside Glucose 244 H 274 H 211 215 Test 11/28/16 07:58 Bedside Glucose 199 Medications Medications Current Medications Aspirin (Halfprin) 81 mg DAILY PO Last administered on 11/28/16 08:38; Admin Dose 81 MG; Start 11/26/16 at 09:00 Clopidogrel Bisulfate (plaVIX) 75 mg DAILY PO Last administered on 11/28/16 08:32; Admin Dose 75 MG; Start 11/26/16 at 09:00 Finasteride (Proscar) 5 mg DAILY PO Last administered on 11/28/16 08:33; Admin Dose 5 MG; Start 11/26/16 at 09:00 Lisinopril (Zestril) 40 mg DAILY PO Last administered on 11/28/16 08:32; Admin Dose 40 MG; Start 11/26/16 at 09:00 Pyridoxine HCl (Vitamin B6) 25 mg DAILY PO Last administered on 11/28/16 08: 33; Admin Dose 25 MG; Start 11/26/16 at 09:00 Patient Own Medication 1 ea BID PO Last administered on 11/28/16 00:59; Admin Dose 1 EA; Start 11/27/16 at 23:45 Linagliptin (Tradjenta) 5 mg DAILY PO Last administered on 11/28/16 08:33; Admin Dose 5 MG; Start 11/26/16 at 09:00 Zolpidem Tartrate (Ambien) 5 mg QHS PRN PO INSOMNIA; Start 11/25/16 at 16:00 Magnesium Hydroxide (Milk Of Mag) 30 ml DAILY PRN PO CONSTIPATION; Start 11/25 at 16:00 Pantoprazole (Protonix Tab) 40 mg DAILY@06 PO Last administered on 11/28/16 06:20; Admin Dose 40 MG; Start 11/26/16 at 06:00 Miscellaneous Information 1 ea NOTE XX ; Start 11/25/16 at 17:00 Glucose (Glutose) 15 gm Q15M PRN PO DECREASED GLUCOSE; Start 11/25/16 at 17:00 Glucose (Glutose) 22.5 gm Q15M PRN PO DECREASED GLUCOSE; Start 11/25/16 at 17: 00 Dextrose (D50w Syringe) 25 ml Q15M PRN IV DECREASED GLUCOSE; Start 11/25/16 at 17:00 Dextrose (D50w Syringe) 50 ml Q15M PRN IV DECREASED GLUCOSE; Start 11/25/16 at 17:00 Glucagon (Glucagen) 1 mg Q15M PRN IM DECREASED GLUCOSE; Start 11/25/16 at 17: 00 Glucose (Glutose) 15 gm Q15M PRN BUCCAL DECREASED GLUCOSE; Start 11/25/16 at 17:00 Atorvastatin Calcium (Lipitor) 40 mg HS PO Last administered on 11/27/16 21: 08; Admin Dose 40 MG; Start 11/26/16 at 21:00 Isosorbide Mononitrate (Imdur) 30 mg DAILY PO Last administered on 11/28/16 08:32; Admin Dose 30 MG; Start 11/26/16 at 13:00 Insulin Glargine (Lantus) 12 unit DAILY@08 SC Last administered on 11/28/16 08:36; Admin Dose 12 UNIT; Start 11/27/16 at 08:00 Diagnostic Test (Pha) (Accu-Chek) 1 ea 02 XX ; Start 11/27/16 at 02:00 Acetylcysteine (Nac) 1,200 mg BID PO Last administered on 11/28/16 08:31; Admin Dose 1,200 MG; Start 11/26/16 at 21:00; Stop 12/01/16 at 20:59 Fish Oil (Fish Oil) 2,000 mg BID PO Last administered on 11/28/16 08:31; Admin Dose 2,000 MG; Start 11/26/16 at 21:00 Niacin (Niacin (Sr)) 500 mg QHS PO Last administered on 11/27/16 21:09; Admin Dose 500 MG; Start 11/26/16 at 21:00 Tamsulosin HCl (Flomax) 0.4 mg BID PO Last administered on 11/28/16 08:32; Admin Dose 0.4 MG; Start 11/27/16 at 21:00 ELIZABETH SANTOS Nov 28, 2016 08:51
--- NOTE | 2016-11-28 18:28 | PN ---
Date/Time of Note Date/Time of Note DATE: 11/28/16 TIME: 18:26 Assessment/Plan VTE Prophylaxis VTE Prophylaxis Intervention: heparin Lines/Catheters IV Catheter Type (from Nrs): Peripheral IV Urinary Cath still in place: No Assessment/Plan Problems: (1) Dyspnea Status: Acute Comment: He will have his cardiac catheterization tomorrow. We will see how this pans out. I am actually is believe that where you end up seeing an angioplasty performed in the morning Qualifiers: Dyspnea type: unspecified Qualified Code: R06.00 - Dyspnea, unspecified type (2) Essential hypertension Status: Chronic Comment: Adequate control. (3) Mixed hyperlipidemia Status: Chronic Comment: Stable on combination medication regimen. (4) Diabetes mellitus type 2 in nonobese Status: Chronic Comment: Adequate control. (5) Peripheral vascular disease due to secondary diabetes Status: Chronic Comment: Adequate control. Input from vascular-noted 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 Comment: Adequate control. Subjective 24 Hr Interval Summary Free Text/Dictation Patient sitting comfortably in chair watching [employer] game. Constitutional: no complaints Respiratory: no complaints Cardiovascular: no complaints Exam/Review of Systems Vital Signs Vitals Vital Signs Date Time Temp Pulse Resp B/P Pulse Ox O2 Delivery O2 Flow Rate FiO2 11/28/16 16:49 63 11/28/16 15:12 97.7 18 114/57 96 11/25/16 15:28 Nasal Cannula 2.0 Intake and Output 11/27/16 11/27/16 11/28/16 15:00 23:00 07:00 Intake Total 250 ml 2100 ml 250 ml Balance 250 ml 2100 ml 250 ml Exam Constitutional: alert, oriented Respiratory: clear to auscultation, normal air movement Cardiovascular: nl pulses, regular rate and rhythm Gastrointestinal: nl liver, spleen, non-tender, soft Results Result Diagram: 11/27/16 0715 11/27/16 0715 Results 24 hrs Laboratory Tests Test 11/27/16 21:05 11/28/16 07:58 11/28/16 11:45 11/28/16 13:55 Bedside Glucose 215 199 348 H 146 Test 11/28/16 17:14 Bedside Glucose 207 Medications Medications Current Medications Aspirin (Halfprin) 81 mg DAILY PO Last administered on 11/28/16t 08:38; Admin Dose 81 MG; Start 11/26/16 at 09:00 Clopidogrel Bisulfate (plaVIX) 75 mg DAILY PO Last administered on 11/28/16 08:32; Admin Dose 75 MG; Start 11/26/16 at 09:00 Finasteride (Proscar) 5 mg DAILY PO Last administered on 11/28/16 08:33; Admin Dose 5 MG; Start 11/26/16 at 09:00 Lisinopril (Zestril) 40 mg DAILY PO Last administered on 11/28/16 08:32; Admin Dose 40 MG; Start 11/26/16 at 09:00 Pyridoxine HCl (Vitamin B6) 25 mg DAILY PO Last administered on 11/28/16 08: 33; Admin Dose 25 MG; Start 11/26/16 at 09:00 Patient Own Medication 1 ea BID PO Last administered on 11/28/16 09:00; Admin Dose 1 EA; Start 11/27/16 at 23:45 Linagliptin (Tradjenta) 5 mg DAILY PO Last administered on 11/28/16 08:33; Admin Dose 5 MG; Start 11/26/16 at 09:00 Zolpidem Tartrate (Ambien) 5 mg QHS PRN PO INSOMNIA; Start 11/25/16 at 16:00 Magnesium Hydroxide (Milk Of Mag) 30 ml DAILY PRN PO CONSTIPATION; Start 11/25 at 16:00 Pantoprazole (Protonix Tab) 40 mg DAILY@06 PO Last administered on 11/28/16 06:20; Admin Dose 40 MG; Start 11/26/16 at 06:00 Miscellaneous Information 1 ea NOTE XX ; Start 11/25/16 at 17:00 Glucose (Glutose) 15 gm Q15M PRN PO DECREASED GLUCOSE; Start 11/25/16 at 17:00 Glucose (Glutose) 22.5 gm Q15M PRN PO DECREASED GLUCOSE; Start 11/25/16 at 17: 00 Dextrose (D50w Syringe) 25 ml Q15M PRN IV DECREASED GLUCOSE; Start 11/25/16 at 17:00 Dextrose (D50w Syringe) 50 ml Q15M PRN IV DECREASED GLUCOSE; Start 11/25/16 at 17:00 Glucagon (Glucagen) 1 mg Q15M PRN IM DECREASED GLUCOSE; Start 11/25/16 at 17: 00 Glucose (Glutose) 15 gm Q15M PRN BUCCAL DECREASED GLUCOSE; Start 11/25/16 at 17:00 Atorvastatin Calcium (Lipitor) 40 mg HS PO Last administered on 11/27/16 21: 08; Admin Dose 40 MG; Start 11/26/16 at 21:00 Isosorbide Mononitrate (Imdur) 30 mg DAILY PO Last administered on 11/28/16 08:32; Admin Dose 30 MG; Start 11/26/16 at 13:00 Insulin Glargine (Lantus) 12 unit DAILY@08 SC Last administered on 11/28/16 08:36; Admin Dose 12 UNIT; Start 11/27/16 at 08:00 Diagnostic Test (Pha) (Accu-Chek) 1 ea 02 XX ; Start 11/27/16 at 02:00 Acetylcysteine (Nac) 1,200 mg BID PO Last administered on 11/28/16 08:31; Admin Dose 1,200 MG; Start 11/26/16 at 21:00; Stop 12/01/16 at 20:59 Fish Oil (Fish Oil) 2,000 mg BID PO Last administered on 11/28/16 08:31; Admin Dose 2,000 MG; Start 11/26/16 at 21:00 Niacin (Niacin (Sr)) 500 mg QHS PO Last administered on 11/27/16 21:09; Admin Dose 500 MG; Start 11/26/16 at 21:00 Tamsulosin HCl (Flomax) 0.4 mg BID PO Last administered on 11/28/16 08:32; Admin Dose 0.4 MG; Start 11/27/16 at 21:00 MARY ANNE HERBERT MD Nov 28, 2016 18:27
[2016-11-28] MEDS: ATORVASTATIN 40 MG TAB PO SCH (20:14)
[2016-11-28] MEDS: NIACIN 500 MG PO SCH (20:15)
[2016-11-29] VITALS (16 sets, daily range): BP systolic 96–159; BP diastolic 45–93; PULSE 53–75; RESP 13–28
[2016-11-29] MEDS: ACCU-CHEK XX SCH ×4 (02:00→19:45)
[2016-11-29] MEDS: PANTOPRAZOLE (EC) 40 MG TAB PO SCH (05:31)
[2016-11-29] MEDS: INSULIN ASPART [NOVOLOG] 3 ML PEN SC SCH ×7 (07:55→21:03)
[2016-11-29] MEDS: ACETYLCYSTEINE 600 MG CAP PO SCH ×2 (08:27→20:51)
[2016-11-29] MEDS: LINAGLIPTIN 5 MG TABLET PO SCH (08:28)
[2016-11-29] MEDS: CLOPIDOGREL 75 MG TAB PO SCH (08:28)
[2016-11-29] MEDS: ISOSORBIDE MONONITRATE(SR)30 MG TAB PO SCH (08:29)
[2016-11-29] MEDS: FINASTERIDE 5 MG TAB PO SCH (08:30)
[2016-11-29] MEDS: ASPIRIN (EC) 81 MG TAB PO SCH (08:30)
[2016-11-29] MEDS: TAMSULOSIN (SR) 0.4 MG CAP PO SCH ×2 (08:31→20:51)
[2016-11-29] MEDS: LISINOPRIL 20 MG TAB PO SCH (08:32)
[2016-11-29] MEDS: COLESTIPOL 1 GM PO SCH ×2 (08:43→20:51)
--- NOTE | 2016-11-29 09:34 | CONS ---
Date/Time of Note Date/Time of Note DATE: 11/29/16 TIME: 09:34 Assessment/Plan Assessment/Plan Chief Complaint/Hosp Course Dyspnea: By history, concerning for his anginal equivalent. Trops negative, no heart failure, no PE by CTA. Symptoms worse after leg was revascularized possibly from increased cardiac output to the leg. Will need cardiac cath for eval Mild-mod : not hemodynamically significant by echo Acute renal failure: Mild and back to baseline after IVF Cardiomyopathy: unknown EF. No CHF by my exam CAD s/p CABG 1999: only one vein graft and HEREDIA patent. s/p PCI of SVG-OM 2014 PVD with claudication s/p stenting of right leg 11/21/2016 DM HTN -cardiac cath this am -continue ASA, plavix -lipitor -hold BB for now as baseline bradycardia -imdur 30mg Problems: Consultation Date/Type/Reason Admit Date/Time Nov 25, 2016 at 14:57 Initial Consult Date 11/26/16 Type of Consultation: Cardiology Referring Provider: RONALD CORDOBA MD 24 HR Interval Summary Free Text/Dictation No o/n events. No dizziness or SOB Exam/Review of Systems Vital Signs Vitals Vital Signs Date Time Temp Pulse Resp B/P Pulse Ox O2 Delivery O2 Flow Rate FiO2 11/29/16 08:15 72 11/29/16 07:25 97.5 19 159/69 97 11/25/16 15:28 Nasal Cannula 2.0 Intake and Output 11/28/16 11/28/16 11/29/16 15:00 23:00 07:00 Intake Total 1000 ml 600 ml Balance 1000 ml 600 ml Exam Constitutional: alert, oriented Psych: nl mood/affect, no complaints Head: atraumatic, normocephalic Neck: No jvd Respiratory: clear to auscultation Cardiovascular: regular rate and rhythm, No edema Gastrointestinal: non-tender, soft Neurological: nl mental status, nl speech Results Result Diagram: 11/27/1671411/27/16714 Results 24 hrs Laboratory Tests Test 11/28/16 11:45 11/28/16 13:55 11/28/16 17:14 11/28/16 19:45 Bedside Glucose 348 H 146 207 152 Test 11/29/16 08:02 Bedside Glucose 209 Medications Medications Current Medications Aspirin (Halfprin) 81 mg DAILY PO Last administered on 11/29/16 08:30; Admin Dose 81 MG; Start 11/26/16 at 09:00 Clopidogrel Bisulfate (plaVIX) 75 mg DAILY PO Last administered on 11/29/16 08:28; Admin Dose 75 MG; Start 11/26/16 at 09:00 Finasteride (Proscar) 5 mg DAILY PO Last administered on 11/29/16 08:30; Admin Dose 5 MG; Start 11/26/16 at 09:00 Lisinopril (Zestril) 40 mg DAILY PO Last administered on 11/29/16 08:32; Admin Dose 40 MG; Start 11/26/16 at 09:00 Pyridoxine HCl (Vitamin B6) 25 mg DAILY PO Last administered on 11/28/16 08: 33; Admin Dose 25 MG; Start 11/26/16 at 09:00 Patient Own Medication 1 ea BID PO Last administered on 11/29/16 08:43; Admin Dose 1 EA; Start 11/27/16 at 23:45 Linagliptin (Tradjenta) 5 mg DAILY PO Last administered on 11/29/16 08:28; Admin Dose 5 MG; Start 11/26/16 at 09:00 Zolpidem Tartrate (Ambien) 5 mg QHS PRN PO INSOMNIA; Start 11/25/16 at 16:00 Magnesium Hydroxide (Milk Of Mag) 30 ml DAILY PRN PO CONSTIPATION; Start 11/25 at 16:00 Pantoprazole (Protonix Tab) 40 mg DAILY@06 PO Last administered on 11/29/16 05:31; Admin Dose 40 MG; Start 11/26/16 at 06:00 Miscellaneous Information 1 ea NOTE XX ; Start 11/25/16 at 17:00 Glucose (Glutose) 15 gm Q15M PRN PO DECREASED GLUCOSE; Start 11/25/16 at 17:00 Glucose (Glutose) 22.5 gm Q15M PRN PO DECREASED GLUCOSE; Start 11/25/16 at 17: 00 Dextrose (D50w Syringe) 25 ml Q15M PRN IV DECREASED GLUCOSE; Start 11/25/16 at 17:00 Dextrose (D50w Syringe) 50 ml Q15M PRN IV DECREASED GLUCOSE; Start 11/25/16 at 17:00 Glucagon (Glucagen) 1 mg Q15M PRN IM DECREASED GLUCOSE; Start 11/25/16 at 17: 00 Glucose (Glutose) 15 gm Q15M PRN BUCCAL DECREASED GLUCOSE; Start 11/25/16 at 17:00 Atorvastatin Calcium (Lipitor) 40 mg HS PO Last administered on 11/28/16 20: 14; Admin Dose 40 MG; Start 11/26/16 at 21:00 Isosorbide Mononitrate (Imdur) 30 mg DAILY PO Last administered on 11/29/16 08:29; Admin Dose 30 MG; Start 11/26/16 at 13:00 Insulin Glargine (Lantus) 12 unit DAILY@08 SC Last administered on 11/28/16 08:36; Admin Dose 12 UNIT; Start 11/27/16 at 08:00 Diagnostic Test (Pha) (Accu-Chek) 1 ea 02 XX ; Start 11/27/16 at 02:00 Acetylcysteine (Nac) 1,200 mg BID PO Last administered on 11/29/16 08:27; Admin Dose 1,200 MG; Start 11/26/16 at 21:00; Stop 12/01/16 at 20:59 Fish Oil (Fish Oil) 2,000 mg BID PO Last administered on 11/28/16 20:14; Admin Dose 2,000 MG; Start 11/26/16 at 21:00 Niacin (Niacin (Sr)) 500 mg QHS PO Last administered on 11/28/16 20:15; Admin Dose 500 MG; Start 11/26/16 at 21:00 Tamsulosin HCl (Flomax) 0.4 mg BID PO Last administered on 11/29/16 08:31; Admin Dose 0.4 MG; Start 11/27/16 at 21:00 ELIZABETH SANTOS Nov 29, 2016 09:34
[2016-11-29] MEDS: INSULIN GLARGINE [LANtus] 3 ML PEN SC SCH (10:18)
[2016-11-29] MEDS ORDERED: IODIXANOL LOCM 100 ML BTL ONE (12:16)
[2016-11-29] MEDS ORDERED: LIDOCAINE 1% (MDV) 20 ML INJ ONE (12:16)
[2016-11-29] MEDS ORDERED: MIDAZOLAM 1 MG/ML 2 ML INJ ONE (12:16)
[2016-11-29] MEDS ORDERED: FENTAnyl 50 MCG/ML VIAL ONE ×2 (12:17→13:37)
[2016-11-29] MEDS ORDERED: CLOPIDOGREL 300 MG TAB ONE (13:16)
[2016-11-29] MEDS ORDERED: morphine 2 MG INJ IV PRN (14:00)
[2016-11-29] MEDS ORDERED: SOD CHLORIDE 0.9% 1,000 ML IV SCH (14:00)
--- NOTE | 2016-11-29 14:11 | OPR ---
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 Procedures Performed: 1)Left heart catheterization with selective left and right coronary angiography. 2)Bypass graft angiography including SVG stumps and HEREDIA 3)Aortogram 4)Selectove angiography of right femoral artery with deployment of Perclose closure device 5)Balloon angioplasty and stenting of the ostial Cx to prox OM with a Synergy 2.5 x 20 and Vernon 2.5 x 12 overlapping drug eluting stents. Pre-operative Diagnosis:Unstable angina, CAD s/p CABG Post-operative Diagnosis:same s/p PCI of ostial Cx/prox OM Indications: Description of Procedure: After informed consent, the patient was brought to the cardiac catheterization lab. The procedure site was prepped and draped in usual manner. The patient was premedicated with versed 0.5mg and fentanyl 25 mcg. 5 mL lidocaine was injected into the right groin. Next using the Seldinger technique and micropuncture access, the 6 panamanian sheath was inserted into the right femoral artery. Next using the JL4 and JR4, selective angiography of the left and right coronary arteries were obtained. The JR 4 was used to engage the SVG stumps and to inject the HEREDIA. The pigtail was then advanced into the ventricle and hemodynamics obtained. Left ventricle angiography was not obtained. Aortogram was obtained in 2 views showing no patent vein grafts The decision was made to proceed with PCI of the ostial Cx/prox OM. A 6 panamanian LB3.0 guide was advanced and engaged into the left coronary artery. After appropriate anticoagulation and antiplatelets were given, the PT 2 LS angioplasty wire was advanced past the lesion. Next the 2.0 X 12 balloon was used to dilate the lesion times 4 at a maximum of 8 shorty. Subsequently, the Synergy 2.5 x 20 stent was advanced to the lesion and deployed at 12 shorty. Next the [place] 2.5 x 12 stent was deployed (overlapping) at the proximal portion of the lesion. Next the stent was post dilated with the 2.75 X 12 noncompliant balloon times 4 at a maximum of 14 shorty. Final angiography revealed TUTU 3 flow, no edge dissection, and appropriate stent expansion. Next all equipment was removed and hemostasis was achieved by Perclose closure device. Findings: Anatomy/Hemodynamics: Left main: 20% plaquing LAD:prox 100%, fills via HEREDIA Circumflex: ostial 99% involving OM, prox 100% Obtuse marginal 1: ostial/prox 99% Obtuse marginal 2: fills via collaterals from OM 1 RCA: prox 100%, fills via left collaterals SVGs: all occluded including the SVG-OM that was stented in 2014. This was confirmed by aortogram in 2 views HEREDIA-LAD patent No gradient at the ostial left subclavian LV: 125/0 Ao:108/42 LVEDP: 0mmHg Contrast used:170 mL Fluoroscopy time:17.4 min Medications used: Versed 0.5 Fentanyl 50 Angiomax plavix 300mg Equipment used: 6 panamanian LB 3.0 guide PT 2 LS angioplasty wire 2 x 12 balloon Synergy 2.5 x 20 drug eluting stent Vernon 2.5 x 12 drug eluting stent 2.75 x 12 noncompliant balloon Estimated blood loss<10 mL. Specimen: none Grafts/implants: none Complications: none Assessment: Unstable angina s/p PCI of ostial Cx to prox OM CAD s/p CABG: HEREDIA patent but all vein grafts including stented SVG-OM from 2015 occluded (confirmed by aortogram) PVD Plan: -observe overnight, possible d/c tomorrow -continue ASA lifelong -plavix at least one year -f/u with ELIZABETH Salas Nov 29, 2016 14:11
[2016-11-29] MEDS: PYRIDOXINE 50 MG TAB PO SCH (14:45)
[2016-11-29] MEDS: FISH OIL 1,000 MG CAP PO SCH ×2 (14:45→20:51)
[2016-11-29] MEDS: SOD CHLORIDE 0.9% 1,000 ML IV SCH (15:47)
--- NOTE | 2016-11-29 18:25 | RADRPT ---
Vent Rate: 54 bpm RR Interval: 0 msec WI Interval: 186 msec QRS Duration: 88 msec QT Interval: 454 msec QTC Interval: 430 msec P-R-T Grady: 0 - 14 - -11 degrees Sinus bradycardia Nonspecific T wave abnormality Abnormal ECG Electronically Signed By: Deven Luevano [id number]
[2016-11-29] MEDS ORDERED: BIVALIRUDIN 250MG /NS 50 ML 50 ML IVPB ONE (18:30)
[2016-11-29] MEDS: ATORVASTATIN 40 MG TAB PO SCH (20:51)
[2016-11-29] MEDS: NIACIN 500 MG PO SCH (20:56)
[2016-11-30] VITALS (14 sets, daily range): BP systolic 95–159; BP diastolic 53–96; PULSE 52–69; RESP 10–24
[2016-11-30] MEDS: ACCU-CHEK XX SCH ×3 (01:34→14:05)
[2016-11-30] MEDS: SOD CHLORIDE 0.9% 1,000 ML IV SCH (03:24)
[2016-11-30] MEDS: PANTOPRAZOLE (EC) 40 MG TAB PO SCH (05:39)
[2016-11-30 06:55] LABS: CREATININE 0.88 mg/dl (0.61-1.24); POTASSIUM 4.1 mmol/L (3.5-5.1)
[2016-11-30] MEDS: INSULIN ASPART [NOVOLOG] 3 ML PEN SC SCH ×4 (07:50→11:41)
[2016-11-30] MEDS: INSULIN GLARGINE [LANtus] 3 ML PEN SC SCH (07:51)
[2016-11-30] MEDS: COLESTIPOL 1 GM PO SCH (09:00)
[2016-11-30] MEDS: PYRIDOXINE 50 MG TAB PO SCH (09:29)
[2016-11-30] MEDS: FISH OIL 1,000 MG CAP PO SCH (09:29)
[2016-11-30] MEDS: ASPIRIN (EC) 81 MG TAB PO SCH (09:30)
[2016-11-30] MEDS: LINAGLIPTIN 5 MG TABLET PO SCH (09:30)
[2016-11-30] MEDS: TAMSULOSIN (SR) 0.4 MG CAP PO SCH (09:30)
[2016-11-30] MEDS: CLOPIDOGREL 75 MG TAB PO SCH (09:30)
[2016-11-30] MEDS: ISOSORBIDE MONONITRATE(SR)30 MG TAB PO SCH (09:30)
[2016-11-30] MEDS: LISINOPRIL 20 MG TAB PO SCH (09:30)
[2016-11-30] MEDS: FINASTERIDE 5 MG TAB PO SCH (09:30)
[2016-11-30] MEDS: ACETYLCYSTEINE 600 MG CAP PO SCH (09:30)
--- NOTE | 2016-11-30 09:34 | CONS ---
Date/Time of Note Date/Time of Note DATE: 11/30/16 TIME: 09:30 Assessment/Plan Assessment/Plan Chief Complaint/Hosp Course CAD s/p CABG 1999: s/p PCI of SVG-OM 2014 but now occluded. No patent vein grafts by cath 11/29. HEREDIA patent. S/p PCI of ostial Cx/OM 11/29 Dyspnea: anginal equivalent. Now resolved after PCI of Cx/OM Mild-mod : not hemodynamically significant by echo Acute renal failure: resolved Cardiomyopathy: unknown EF. No CHF by my exam PVD with claudication s/p stenting of right leg 11/21/2016 DM HTN -ok for discharge -please prescribe imdur 30mg on discharge as he would still benefit from long acting nitrates -continue ASA, plavix -lipitor -can consider BB as outpt Problems: Consultation Date/Type/Reason Admit Date/Time Nov 25, 2016 at 14:57 Initial Consult Date 11/26/16 Type of Consultation: Cardiology Referring Provider: RONALD CORDOBA MD 24 HR Interval Summary Free Text/Dictation No o/n events. Walked around ICU and he notices the difference. No further SOB. Exam/Review of Systems Vital Signs Vitals Vital Signs Date Time Temp Pulse Resp B/P Pulse Ox O2 Delivery O2 Flow Rate FiO2 11/30/16 08:00 98.5 66 18 159/65 99 Room Air Intake and Output 11/29/16 11/29/16 11/30/16 15:00 23:00 07:00 Intake Total 1393.75 ml 525 ml Output Total 200 ml 150 ml 450 ml Balance -200 ml 1243.75 ml 75 ml Exam Constitutional: alert, oriented Psych: nl mood/affect, no complaints Head: atraumatic, normocephalic Neck: No jvd Respiratory: clear to auscultation, No crackles/rales Cardiovascular: regular rate and rhythm, systolic murmur (2/6 BRANDAN), No edema Gastrointestinal: non-tender, soft Extremities: No other (no hematoma right groin ) Neurological: nl mental status, nl speech Results Result Diagram: 11/27/16 0715 11/30/16 0554 Results 24 hrs Laboratory Tests Test 11/29/16 17:41 11/29/16 19:43 11/29/16 20:58 11/30/16 01:30 Bedside Glucose 293 H 313 H 256 H 101 Test 11/30/16 05:54 11/30/16 07:44 Sodium Level 139 Potassium Level 4.1 Chloride Level 111 H Carbon Dioxide Level 17 L Anion Gap 15 Blood Urea Nitrogen 20 Creatinine 0.88 Glucose Level 127 Calcium Level 9.0 Bedside Glucose 153 Medications Medications Current Medications Aspirin (Halfprin) 81 mg DAILY PO Last administered on 11/29/16 08:30; Admin Dose 81 MG; Start 11/26/16 at 09:00 Clopidogrel Bisulfate (plaVIX) 75 mg DAILY PO Last administered on 11/29/16 08:28; Admin Dose 75 MG; Start 11/26/16 at 09:00 Finasteride (Proscar) 5 mg DAILY PO Last administered on 11/29/16 08:30; Admin Dose 5 MG; Start 11/26/16 at 09:00 Lisinopril (Zestril) 40 mg DAILY PO Last administered on 11/29/16 08:32; Admin Dose 40 MG; Start 11/26/16 at 09:00 Pyridoxine HCl (Vitamin B6) 25 mg DAILY PO Last administered on 11/28/16 08: 33; Admin Dose 25 MG; Start 11/26/16 at 09:00 Patient Own Medication 1 ea BID PO Last administered on 11/29/16 20:51; Admin Dose 1 EA; Start 11/27/16 at 23:45 Linagliptin (Tradjenta) 5 mg DAILY PO Last administered on 11/29/16 08:28; Admin Dose 5 MG; Start 11/26/16 at 09:00 Zolpidem Tartrate (Ambien) 5 mg QHS PRN PO INSOMNIA; Start 11/25/16 at 16:00 Magnesium Hydroxide (Milk Of Mag) 30 ml DAILY PRN PO CONSTIPATION; Start 11/25 at 16:00 Pantoprazole (Protonix Tab) 40 mg DAILY@06 PO Last administered on 11/30/16 05:39; Admin Dose 40 MG; Start 11/26/16 at 06:00 Miscellaneous Information 1 ea NOTE XX ; Start 11/25/16 at 17:00 Glucose (Glutose) 15 gm Q15M PRN PO DECREASED GLUCOSE; Start 11/25/16 at 17:00 Glucose (Glutose) 22.5 gm Q15M PRN PO DECREASED GLUCOSE; Start 11/25/16 at 17: 00 Dextrose (D50w Syringe) 25 ml Q15M PRN IV DECREASED GLUCOSE; Start 11/25/16 at 17:00 Dextrose (D50w Syringe) 50 ml Q15M PRN IV DECREASED GLUCOSE; Start 11/25/16 at 17:00 Glucagon (Glucagen) 1 mg Q15M PRN IM DECREASED GLUCOSE; Start 11/25/16 at 17: 00 Glucose (Glutose) 15 gm Q15M PRN BUCCAL DECREASED GLUCOSE; Start 11/25/16 at 17:00 Atorvastatin Calcium (Lipitor) 40 mg HS PO Last administered on 11/29/16 20: 51; Admin Dose 40 MG; Start 11/26/16 at 21:00 Isosorbide Mononitrate (Imdur) 30 mg DAILY PO Last administered on 11/29/16 08:29; Admin Dose 30 MG; Start 11/26/16 at 13:00 Insulin Glargine (Lantus) 12 unit DAILY@08 SC Last administered on 11/30/16 07:51; Admin Dose 12 UNIT; Start 11/27/16 at 08:00 Diagnostic Test (Pha) (Accu-Chek) 1 ea 02 XX ; Start 11/27/16 at 02:00 Acetylcysteine (Nac) 1,200 mg BID PO Last administered on 11/29/16 20:51; Admin Dose 1,200 MG; Start 11/26/16 at 21:00; Stop 12/01/16 at 20:59 Fish Oil (Fish Oil) 2,000 mg BID PO Last administered on 11/29/16 20:51; Admin Dose 2,000 MG; Start 11/26/16 at 21:00 Niacin (Niacin (Sr)) 500 mg QHS PO Last administered on 11/29/16 20:56; Admin Dose 500 MG; Start 11/26/16 at 21:00 Tamsulosin HCl (Flomax) 0.4 mg BID PO Last administered on 11/29/16 20:51; Admin Dose 0.4 MG; Start 11/27/16 at 21:00 Morphine Sulfate 2 mg 2 mg Q2H PRN IV FOR NON CARDIAC PAIN (4-10); Start 11/29 at 14:00 Sodium Chloride (NS) 1,000 ml @ 75 mls/hr [id number] IV Last administered on t 03:24; Admin Dose 75 MLS/HR; Start 11/29/16 at 15:00 ELIZABETH SANTOS Nov 30, 2016 09:34
--- NOTE | 2016-11-30 14:02 | DS ---
Date/Time of Note Date/Time of Note DATE: 11/30/16 TIME: 14:00 Discharge Summary Admission/Discharge Info Admit Date/Time Nov 25, 2016 at 14:57 Discharge Date/Time November 30, 2016 Discharge Diagnosis Unstable angina secondary to obtuse marginal disease; coronary artery disease; diabetes mellitus type 2; hypertension; mixed hyperlipidemia; benign prostatic hypertrophy Patient Condition: Good Consults Cardiology; vascular surgery Procedures Left heart catheterization; echocardiography; PCI with stenting 2 Hx of Present Illness 81-year-old gentleman. He had undergone angiography and angioplasties by vascular surgery a few days ago. Shortly thereafter he developed worsening shortness of breath with PND and orthopnea. He denies any chest pain, chest pressure or neck squeezing symptoms. Patient was not able to lie down and breathe comfortably. He notified the physicians who advised him to present to the emergency room. In the emergency room he was evaluated and determination was made to admit him. Hospital Course CAD s/p CABG 1999: s/p PCI of SVG-OM 2014 but now occluded. No patent vein grafts by cath 11/29. HEREDIA patent. S/p PCI of ostial Cx/OM 11/29 Dyspnea: anginal equivalent. Now resolved after PCI of Cx/OM Mild-mod : not hemodynamically significant by echo Acute renal failure: resolved Cardiomyopathy: unknown EF. No CHF by my exam PVD with claudication s/p stenting of right leg 11/21/2016 DM HTN -ok for discharge -please prescribe imdur 30mg on discharge as he would still benefit from long acting nitrates -continue ASA, plavix -lipitor -can consider BB as outpt Charming 81-year-old male came in with shortness of breath. His shortness of breath was actually suspicious for an anginal equivalent. He had a minimal bump in troponins which was not statistically significant. However based on his symptomatology he went for left heart catheterization with finding of abnormal lesion and had stenting placed. He is now significantly improved after the stenting as compared to the time of admission. He is stable for discharge. He has no known communicable diseases he has good rehabilitation potential he is not a hazard to himself or others and is competent for medical decisions. Home Meds Active Scripts Clopidogrel Bisulfate (Clopidogrel) 75 Mg Tablet, 75 MG PO DAILY, #30 TAB Prov:RONALD CORDOBA MD 10/30/16 Reported Medications Pyridoxine Hcl* (Vitamin B-6*) 25 Mg Tablet, 25 MG PO DAILY, TAB 11/20/16 Pyridoxine Hcl* (Pyridoxine Hcl*) 50 Mg Tablet, 50 MG PO DAILY, TAB 11/20/16 Amitriptyline Hcl* (Amitriptyline Hcl*) 10 Mg Tablet, 10 MG PO QHS, #30 TAB 10/23/16 Insulin Glargine* (Lantus*) 100 Unit/Ml Soln, 10 UNIT SC DAILY, #1 VIAL 10/23/16 Finasteride* (Finasteride*) 5 Mg Tablet, 5 MG PO DAILY, TAB 10/23/16 Lisinopril* (Lisinopril*) 40 Mg Tablet, 40 MG PO DAILY, TAB 02/22/14 Glimepiride* (Glimepiride*) 4 Mg Tablet, 4 MG PO WITH BREAKFAST, TAB 02/22/14 Tamsulosin Hcl* (Tamsulosin Hcl*) 0.4 Mg Cap.er.24h, 0.4 MG PO DAILY, CAP 02/22/14 Colestipol Hcl (Colestipol Hcl) 1 G Tablet, 1 G PO BID 02/22/14 Sitagliptin Phos-Metformin Hcl (Janumet) 50-1,000 Mg Tablet, 1 TAB PO BID, TAB 02/22/14 Aspirin* (Aspirin* EC) 81 Mg Tablet.dr, 81 MG PO DAILY, TAB 02/22/14 Follow-up Plan Cardiology in 1 week primary care physician in 3 weeks Primary Care Provider Mary Anne Herbert MD Pending Labs Laboratory Tests Test 11/29/16 17:41 11/29/16 19:43 11/29/16 20:58 11/30/16 01:30 Bedside Glucose 293mg/dL (70-220) 313mg/dL (70-220) 256mg/dL (70-220) 101mg/dL (70-220) Test 11/30/16 05:54 11/30/16 07:44 11/30/16 09:37 11/30/16 11:30 Sodium Level 139mmol/L (135-144) Potassium Level 4.1mmol/L (3.5-5.1) Chloride Level 111mmol/L (97-110) Carbon Dioxide Level 17mmol/L (21-31) Anion Gap 15 (8-16) Blood Urea Nitrogen 20mg/dl (7-20) Creatinine 0.88mg/dl (0.61-1.24) Glucose Level 127mg/dl (70-220) Calcium Level 9.0mg/dl (8.4-10.2) Bedside Glucose 153mg/dL (70-220) 209mg/dL (70-220) 154mg/dL (70-220) MARY ANNE HERBERT MD Nov 30, 2016 14:02
--- NOTE | 2016-11-30 14:03 | PDOCDIS ---
Discharge Instructions DIAGNOSIS Discharge Diagnosis Unstable angina secondary to obtuse marginal disease; coronary artery disease; diabetes mellitus type 2; hypertension; mixed hyperlipidemia; benign prostatic hypertrophy CONDITION Patient Condition: Good HOME CARE INSTRUCTIONS: Special Diet: LOW CHOLESTEROL/LOW SODIUM/CONSISTENT CARB ACTIVITY: Activity Restrictions: Slowly Increase Activity Do not operate Machinery Do not operate Power Tool FOLLOW UP/APPOINTMENTS Follow-up Plan Cardiology in 1 week primary care physician in 3 weeks SCHOOL/WORK RELEASE May return to School/Work with: With Restrictions MARY ANNE HERBERT MD Nov 30, 2016 14:03
[2016-11-30] MEDS ORDERED: ATOR40TA68 PO (14:05)
[2016-11-30] MEDS ORDERED: ISOS30TA5 PO (14:05)
== END 2016-11-30 14:30 | disposition home or self-care (01) | DRG 247 ==
LOC: E/R 10:07 → TEL 14:57 → ICU 11-29 14:35
PROVIDERS: ADMIT Internal Medicine; ATTEND Internal Medicine
PROC: B310YZZ Fluoroscopy of Thoracic Aorta using Other Contrast (ICD-10-PCS; 2016-11-29)
PROC: B211YZZ Fluoroscopy of Multiple Coronary Arteries using Other Contrast (ICD-10-PCS; 2016-11-29)
PROC: B213YZZ Fluoroscopy of Multiple Coronary Artery Bypass Grafts using Other Contrast (ICD-10-PCS; 2016-11-29)
PROC: B218YZZ Fluoroscopy of Left Internal Mammary Bypass Graft using Other Contrast (ICD-10-PCS; 2016-11-29)
PROC: 027035Z Dilation of Coronary Artery, One Artery with Two Drug-eluting Intraluminal Devices, Percutaneous Approach (ICD-10-PCS; principal; 2016-11-29 10:30)
PROC: 4A023N7 Measurement of Cardiac Sampling and Pressure, Left Heart, Percutaneous Approach (ICD-10-PCS; 2016-11-29 10:30)
DX: I25.110 Atherosclerotic heart disease of native coronary artery with unstable angina pectoris (principal); N17.9 Acute kidney failure, unspecified; E11.51 Type 2 diabetes mellitus with diabetic peripheral angiopathy without gangrene; I42.0 Dilated cardiomyopathy; N13.8 Other obstructive and reflux uropathy; I25.82 Chronic total occlusion of coronary artery; I10 Essential (primary) hypertension; N40.1 Benign prostatic hyperplasia with lower urinary tract symptoms; E78.2 Mixed hyperlipidemia; I70.212 Atherosclerosis of native arteries of extremities with intermittent claudication, left leg; I70.221 Atherosclerosis of native arteries of extremities with rest pain, right leg; I35.0 Nonrheumatic aortic (valve) stenosis; M15.0 Primary generalized (osteo)arthritis; Z95.1 Presence of aortocoronary bypass graft; Z79.4 Long term (current) use of insulin; Z79.82 Long term (current) use of aspirin; Z95.5 Presence of coronary angioplasty implant and graft; Z82.49 Family history of ischemic heart disease and other diseases of the circulatory system; Z87.891 Personal history of nicotine dependence; Z96.643 Presence of artificial hip joint, bilateral
CPT/HCPCS: 36415; 71010; 71275; 80048; 80053; 82962; 83036; 83880; 84436; 84443; 84479; 84484; 85025; 85610; 85730; 87081; 93005; 93306; 93458; 97162; 97166; C1725; C1760; C1874; C1887; C1894; C9600; J0583; J1644; J1815; J2250; J3010; J7030; J7040; Q9967

== ENCOUNTER 2017-08-05 05:59 | Day surgery (SDC) | END 2017-08-06 10:35 | disposition home or self-care (01) ==

== ENCOUNTER 2017-09-15 10:36 | Emergency (ER) | END 2017-09-15 14:00 | disposition home or self-care (01) ==